=== PATIENT | male | born 1960 | race Caucasian/White ===

== ENCOUNTER 2017-02-03 11:39 | Emergency (ER) | payer MEDICAID, MEDICARE ==
[~2017-02-03] VITALS: Ht 177.8 cm; Wt 87.8 kg
[~2017-02-03 11:39] MED LIST: ATOR40TA78 PO; CARV12.52 PO; CLOP75TA PO; CLOP75TA52 PO; DIAZ5TAB4 PO; ESCI20TA PO; HYDR-3237 PO; HYDR10TA11 PO; ISOS30TA8 PO; LEVO100T5 PO; LISI40TA PO; LORA-445 PO; METF500T4 PO; METH4TAB2 PO; NAPR500T3 PO; NITR0.4T SL; OXYC5TAB3 PO; POLY17PO5 PO; [UNRECOGNIZED DRUG - CODE] PO
[2017-02-03 12:21] LABS: HEMATOCRIT 46.1 % (39.2-51.8); HEMOGLOBIN 15.6 g/dL (13.7-18.0); WHITE BLOOD COUNT 12.2 x10^3/uL (3.4-10)
[2017-02-03] MEDS ORDERED: METOCLOPRAMIDE 5 MG/ML, 2ML ONE (12:21)
[2017-02-03] MEDS ORDERED: ONDANSETRON 2MG/ML, 2ML ONE (12:21)
[2017-02-03] MEDS ORDERED: METOCLOPRAMIDE 5 MG/ML, 2ML IVPush ONE (12:30)
[2017-02-03] MEDS ORDERED: SODIUM CHLORIDE 0.9% 1,000ML IVBOLUS ONE (12:30)
[2017-02-03] MEDS ORDERED: SODIUM CHLORIDE FLUSH 10ML SYR IVF ONE (12:30)
[2017-02-03] MEDS ORDERED: ONDANSETRON 2MG/ML, 2ML IVPush ONE (12:30)
[2017-02-03 12:38] VITALS: BP 155/85
[2017-02-03 12:39] LABS: ASPARTATE AMINO TRANSFERASE 29 U/L (15-37); BLOOD UREA NITROGEN 15 mg/dL (7-18)
[2017-02-03] MEDS ORDERED: OMNIPAQUE 350 MG/ML, 100ML BOTTLE ONE (13:01)
[2017-02-03] MEDS ORDERED: MORPHINE SULFATE 4 MG/ML, 1ML ONE (13:16)
[2017-02-03] MEDS ORDERED: MORPHINE SULFATE 4 MG/ML, 1ML IVPush PRN (13:30)
[2017-02-03 13:56] LABS: PATH.CAST-FLAG NOT PRESENT; SPERM-FLAG NOT PRESENT; SRC-FLAG NOT PRESENT; XTAL-FLAG NOT PRESENT; YLC-FLAG NOT PRESENT
== END 2017-02-03 14:08 | disposition home or self-care (01) ==
LOC: ED 12:08
DX: K52.9 Noninfective gastroenteritis and colitis, unspecified (principal); E11.9 Type 2 diabetes mellitus without complications; M19.90 Unspecified osteoarthritis, unspecified site; I50.9 Heart failure, unspecified
CPT/HCPCS: 36415; 74177; 80053; 81001; 83690; 85025; 96361; 96374; 96375; 99285; J2405; J2765; J7030; Q9967

== ENCOUNTER 2017-03-27 11:46 | Emergency (ER) | payer MEDICARE ==
[~2017-03-27] VITALS: Ht 177.8 cm; Wt 88.0 kg
[~2017-03-27 11:46] MED LIST changes: -NAPR500T3 PO; +NAPR500T4 PO
[2017-03-27] MEDS ORDERED: SODIUM CHLORIDE 0.9% 1,000 ML IV ONE (12:11)
[2017-03-27] MEDS ORDERED: ONDANSETRON 2MG/ML, 2ML ONE (12:16)
[2017-03-27] MEDS ORDERED: morphine SULFATE 10 MG/ML, 1ML ONE ×2 (12:16→13:31)
[2017-03-27] MEDS: MORPHINE SULFATE 4 MG/ML, 1ML IVPush PRN ×2 (12:19→13:34)
[2017-03-27] MEDS ORDERED: ONDANSETRON 2MG/ML, 2ML IVPush ONE (12:30)
[2017-03-27] MEDS ORDERED: SODIUM CHLORIDE FLUSH 10ML SYR IVF ONE (12:30)
[2017-03-27] MEDS ORDERED: SODIUM CHLORIDE 0.9% 1,000ML IVBOLUS ONE (12:30)
[2017-03-27 12:40] LABS: HEMATOCRIT 44.3 % (39.2-51.8); HEMOGLOBIN 14.9 g/dL (13.7-18.0); WHITE BLOOD COUNT 11.7 x10^3/uL (3.4-10)
[2017-03-27 12:47] LABS: ASPARTATE AMINO TRANSFERASE 12 U/L (15-37); BLOOD UREA NITROGEN 20 mg/dL (7-18)
[2017-03-27] MEDS ORDERED: DIAZEPAM 5 MG/ML, 2ML ONE (14:43)
[2017-03-27] MEDS ORDERED: DIAZEPAM 5 MG/ML, 2ML IV ONE (15:00)
[2017-03-27 15:23] VITALS: BP 103/61
== END 2017-03-27 15:45 | disposition home or self-care (01) ==
LOC: ED 13:19
DX: K52.9 Noninfective gastroenteritis and colitis, unspecified (principal); I11.0 Hypertensive heart disease with heart failure; I50.9 Heart failure, unspecified; E11.9 Type 2 diabetes mellitus without complications; I25.10 Atherosclerotic heart disease of native coronary artery without angina pectoris; M19.90 Unspecified osteoarthritis, unspecified site; F17.200 Nicotine dependence, unspecified, uncomplicated
CPT/HCPCS: 36415; 80053; 81001; 82010; 83605; 83690; 85025; 93005; 96361; 96374; 96375; 96376; 99285; J2405; J3360; J7030

== ENCOUNTER 2017-04-22 10:51 | Emergency (ER) | payer MEDICARE ==
[~2017-04-22] VITALS: Ht 177.8 cm; Wt 85.0 kg
[2017-04-22] MEDS ORDERED: SODIUM CHLORIDE 0.9% 1,000 ML IV ONE (11:29)
[2017-04-22] MEDS ORDERED: FAMOTIDINE 20 MG/2 ML IVP ONE (11:30)
[2017-04-22] MEDS ORDERED: HYDROmorphone 1 MG/ML, 1ML IVPush PRN (11:30)
[2017-04-22] MEDS ORDERED: SODIUM CHLORIDE 0.9% 1,000ML IVBOLUS ONE (11:30)
[2017-04-22] MEDS ORDERED: SODIUM CHLORIDE FLUSH 10ML SYR IVF ONE (11:30)
[2017-04-22] MEDS ORDERED: METOCLOPRAMIDE 5 MG/ML, 2ML IVPush ONE (11:30)
[2017-04-22] MEDS ORDERED: ONDANSETRON 2MG/ML, 2ML IVPush ONE (11:30)
[2017-04-22] MEDS ORDERED: ONDANSETRON 2MG/ML, 2ML ONE (12:05)
[2017-04-22] MEDS ORDERED: HYDROmorphone 2 MG/ML, 1ML ONE (12:05)
[2017-04-22] MEDS ORDERED: METOCLOPRAMIDE 5 MG/ML, 2ML ONE (12:05)
[2017-04-22 12:06] LABS: HEMATOCRIT 45.4 % (39.2-51.8); HEMOGLOBIN 15.3 g/dL (13.7-18.0); WHITE BLOOD COUNT 12.6 x10^3/uL (3.4-10)
[2017-04-22] MEDS ORDERED: FAMOTIDINE 20 MG/2 ML ONE (12:06)
[2017-04-22 12:17] LABS: ASPARTATE AMINO TRANSFERASE 18 U/L (15-37); BLOOD UREA NITROGEN 18 mg/dL (7-18)
[2017-04-22 13:25] VITALS: BP 128/76
== END 2017-04-22 14:11 | disposition home or self-care (01) ==
LOC: ED 12:46
DX: K52.9 Noninfective gastroenteritis and colitis, unspecified (principal); E86.9 Volume depletion, unspecified; E86.0 Dehydration; M54.5 Low back pain; I25.10 Atherosclerotic heart disease of native coronary artery without angina pectoris; I25.2 Old myocardial infarction; I50.9 Heart failure, unspecified
CPT/HCPCS: 36415; 74022; 80053; 83605; 83690; 85025; 96361; 96374; 96375; 99285; J1170; J2405; J2765; J7030; S0028

== ENCOUNTER 2017-04-23 10:46 | Emergency (ER) | payer MEDICARE ==
[~2017-04-23] VITALS: Ht 182.9 cm; Wt 85.5 kg
[2017-04-23 10:48] VITALS: BP 174/100
[2017-04-23] MEDS ORDERED: SODIUM CHLORIDE 0.9% 1,000ML IVBOLUS ONE ×2 (11:00→13:30)
[2017-04-23] MEDS ORDERED: SODIUM CHLORIDE FLUSH 10ML SYR IVF ONE ×2 (11:00→13:30)
[2017-04-23] MEDS ORDERED: ONDANSETRON 2MG/ML, 2ML IVPush ONE ×2 (11:00→13:30)
[2017-04-23 11:41] LABS: HEMATOCRIT 46.9 % (39.2-51.8); HEMOGLOBIN 15.6 g/dL (13.7-18.0); WHITE BLOOD COUNT 13.4 x10^3/uL (3.4-10)
[2017-04-23 12:01] LABS: ASPARTATE AMINO TRANSFERASE 21 U/L (15-37); BLOOD UREA NITROGEN 12 mg/dL (7-18)
[2017-04-23] MEDS ORDERED: ONDANSETRON 2MG/ML, 2ML ONE (13:11)
[2017-04-23] MEDS ORDERED: MORPHINE SULFATE 4 MG/ML, 1ML IVPush PRN (13:30)
[2017-04-23] MEDS ORDERED: morphine SULFATE 10 MG/ML, 1ML ONE (13:36)
[2017-04-23] MEDS ORDERED: OMNIPAQUE 350 MG/ML, 100ML BOTTLE ONE (14:56)
[2017-04-23 14:58] LABS: PATH.CAST-FLAG NOT PRESENT; SPERM-FLAG NOT PRESENT; SRC-FLAG NOT PRESENT; XTAL-FLAG NOT PRESENT; YLC-FLAG NOT PRESENT
[2017-04-23 15:04] LABS: HEMATOCRIT 46.1 % (39.2-51.8); HEMOGLOBIN 15.4 g/dL (13.7-18.0); WHITE BLOOD COUNT 12.6 x10^3/uL (3.4-10)
[2017-04-23 15:14] LABS: BLOOD UREA NITROGEN 13 mg/dL (7-18)
== END 2017-04-23 16:37 | disposition home or self-care (01) ==
LOC: ED 13:17
DX: M47.896 Other spondylosis, lumbar region (principal); R10.84 Generalized abdominal pain; R19.7 Diarrhea, unspecified; R11.2 Nausea with vomiting, unspecified; G89.29 Other chronic pain; M54.5 Low back pain; E11.9 Type 2 diabetes mellitus without complications; I25.10 Atherosclerotic heart disease of native coronary artery without angina pectoris; I11.0 Hypertensive heart disease with heart failure; I50.9 Heart failure, unspecified
CPT/HCPCS: 36415; 74177; 80048; 80053; 81001; 82040; 83690; 85025; 85610; 93005; 96361; 96374; 96375; 99285; J2405; J7030; Q9967

== ENCOUNTER 2017-05-02 23:37 | Emergency (ER) | payer MEDICARE ==
[~2017-05-02] VITALS: Ht 177.8 cm; Wt 89.4 kg
[2017-05-03] MEDS ORDERED: SODIUM CHLORIDE FLUSH 10ML SYR IVF ONE
[2017-05-03 00:45] LABS: HEMATOCRIT 41.3 % (39.2-51.8); HEMOGLOBIN 14.1 g/dL (13.7-18.0)
[2017-05-03 00:58] LABS: BLOOD UREA NITROGEN 20 mg/dL (7-18)
[2017-05-03 01:13] LABS: IS PT STATUS REG ER OR PRE ER? YES
[2017-05-03 02:06] VITALS: BP 136/67
== END 2017-05-03 02:09 | disposition home or self-care (01) ==
LOC: ED 05-03 02:00
DX: R06.00 Dyspnea, unspecified (principal); I10 Essential (primary) hypertension; E11.9 Type 2 diabetes mellitus without complications
CPT/HCPCS: 36415; 71020; 80048; 82040; 84484; 85025; 93005; 99285

== ENCOUNTER 2017-05-15 15:39 | Emergency (ER) | payer MEDICARE ==
[~2017-05-15] VITALS: Ht 177.8 cm; Wt 84.4 kg
[2017-05-15] MEDS ORDERED: HYDROmorphone 1 MG/ML, 1ML IM ONE (17:30)
[2017-05-15] MEDS ORDERED: DEXAMETHASONE 4 MG TABLET PO ONE (17:30)
[2017-05-15] MEDS ORDERED: ONDANSETRON ODT 4 MG PO ONE (17:30)
[2017-05-15] MEDS ORDERED: ONDANSETRON ODT 4 MG ONE (17:38)
[2017-05-15] MEDS ORDERED: DEXAMETHASONE 4 MG TABLET ONE (17:38)
[2017-05-15] MEDS ORDERED: HYDROmorphone 2 MG/ML, 1ML ONE (17:39)
[2017-05-15 17:58] LABS: BASOPHILS # (AUTO) 0.11 x10^3/uL (0-0.1); BASOPHILS % (AUTO) 1 % (0-1); EOSINOPHILS # (AUTO) 0.09 x10^3/uL (0-0.4); EOSINOPHILS % (AUTO) 1 % (1-7); LYMPHOCYTES # (AUTO) 2.75 x10^3/uL (1-3.4); LYMPHOCYTES % (AUTO) 19 % (22-44); MD NO; MEAN CORPUSCULAR HEMOGLOBIN 30.9 pg (27.5-34.5); MEAN CORPUSCULAR HGB CONC 33.3 g/dL (33.2-36.2); MEAN CORPUSCULAR VOLUME 92.7 fL (81-97); MONOCYTES # (AUTO) 1.26 x10^3/uL (0.2-0.8); MONOCYTES % (AUTO) 9 % (2-9); NEUTROPHILS # (AUTO) 10.33 x10^3/uL (1.8-6.8); NEUTROPHILS % (AUTO) 71 % (42-75); PLATELET COUNT 371 x10^3/uL (130-400); RED BLOOD COUNT 5.23 x10^6/uL (4.38-5.82); RED CELL DISTRIBUTION WIDTH 13.8 % (9.4-14.8)
[2017-05-15 18:09] LABS: ALANINE AMINOTRANSFERASE 39 U/L (12-78); ALBUMIN 4.8 g/dL (3.4-5.0); ANION GAP 11 mmol/L (5-15); CALCIUM 9.2 mg/dL (8.5-10.1); CHLORIDE 104 mmol/L (98-107); CREATININE 1.22 mg/dL (0.7-1.3)
[2017-05-15 18:12] LABS: ALKALINE PHOSPHATASE 65 U/L (45-117); BILIRUBIN,TOTAL 0.8 mg/dL (0.2-1.0); TOTAL PROTEIN 8.1 g/dL (6.4-8.2)
[2017-05-15 18:59] VITALS: BP 136/73
== END 2017-05-15 19:32 | disposition home or self-care (01) ==
LOC: ED 18:30
DX: M54.31 Sciatica, right side (principal); Z76.0 Encounter for issue of repeat prescription; F17.200 Nicotine dependence, unspecified, uncomplicated; E11.9 Type 2 diabetes mellitus without complications; I25.10 Atherosclerotic heart disease of native coronary artery without angina pectoris; I25.2 Old myocardial infarction; I50.9 Heart failure, unspecified
CPT/HCPCS: 36415; 80053; 85025; 96372; 99284; J1170; Q0162

== ENCOUNTER 2017-06-13 14:04 | Emergency (ER) | payer MEDICARE ==
[~2017-06-13] VITALS: Ht 177.8 cm; Wt 85.0 kg
[~2017-06-13 14:04] MED LIST changes: +GABA300C10 PO
[2017-06-13] MEDS ORDERED: ASPIRIN 81 MG TABLET CHEW PO ONE (14:30)
[2017-06-13 15:06] LABS: BASOPHILS % (AUTO) 1 % (0-1); EOSINOPHILS # (AUTO) 0.19 x10^3/uL (0-0.4); EOSINOPHILS % (AUTO) 1 % (1-7); LYMPHOCYTES # (AUTO) 2.71 x10^3/uL (1-3.4); LYMPHOCYTES % (AUTO) 20 % (22-44); MD NO; MEAN CORPUSCULAR HEMOGLOBIN 30.2 pg (27.5-34.5); MEAN CORPUSCULAR HGB CONC 33.4 g/dL (33.2-36.2); MEAN CORPUSCULAR VOLUME 90.6 fL (81-97); MEAN PLATELET VOLUME 7.8 fL (7.4-10.4); MONOCYTES # (AUTO) 1.15 x10^3/uL (0.2-0.8); MONOCYTES % (AUTO) 9 % (2-9); NEUTROPHILS # (AUTO) 9.17 x10^3/uL (1.8-6.8); NEUTROPHILS % (AUTO) 69 % (42-75); PLATELET COUNT 376 x10^3/uL (130-400); RED BLOOD COUNT 4.93 x10^6/uL (4.38-5.82); RED CELL DISTRIBUTION WIDTH 14.5 % (9.4-14.8)
[2017-06-13] MEDS ORDERED: ASPIRIN 81 MG TABLET CHEW ONE (15:12)
[2017-06-13 15:15] LABS: ALBUMIN 4.2 g/dL (3.4-5.0); ANION GAP 7 mmol/L (5-15); CALCIUM 8.7 mg/dL (8.5-10.1); CHLORIDE 101 mmol/L (98-107)
[2017-06-13 15:20] LABS: TROPONIN I < 0.015 ng/mL (0.000-0.045)
[2017-06-13] MEDS ORDERED: OMNIPAQUE 350 MG/ML, 100ML BOTTLE ONE (16:19)
[2017-06-13] MEDS ORDERED: KETOROLAC 30 MG/1 ML ONE (16:41)
[2017-06-13 16:43] VITALS: BP 137/80
[2017-06-13] MEDS ORDERED: KETOROLAC 30 MG/1 ML IM ONE (17:00)
== END 2017-06-13 17:12 | disposition home or self-care (01) ==
LOC: ED 15:48
DX: M94.0 Chondrocostal junction syndrome [Tietze] (principal); I11.0 Hypertensive heart disease with heart failure; I50.9 Heart failure, unspecified; E11.9 Type 2 diabetes mellitus without complications; M19.90 Unspecified osteoarthritis, unspecified site; I25.10 Atherosclerotic heart disease of native coronary artery without angina pectoris; F17.210 Nicotine dependence, cigarettes, uncomplicated
CPT/HCPCS: 36415; 71046; 71275; 80048; 82040; 83880; 84484; 85025; 85379; 93005; 96372; 99285; J1885; Q9967

== ENCOUNTER 2017-11-12 16:36 | Emergency (ER) | payer MEDICARE ==
[~2017-11-12] VITALS: Ht 177.8 cm; Wt 84.8 kg
[~2017-11-12 16:36] MED LIST changes: -METF500T4 PO; +METF500T5 PO; +NAPR-685 PO; -NAPR500T4 PO
[2017-11-12] MEDS ORDERED: ASCO-96 PO (17:21)
[2017-11-12] MEDS ORDERED: SOFO1TAB PO (17:21)
[2017-11-12] MEDS ORDERED: CITA40TA5 PO ×2 (17:21)
[2017-11-12] MEDS ORDERED: SODIUM CHLORIDE 0.9% 1,000ML IVBOLUS ONE (18:00)
[2017-11-12] MEDS ORDERED: SODIUM CHLORIDE FLUSH 10ML SYR IVF ONE (18:00)
[2017-11-12 18:26] LABS: BASOPHILS # (AUTO) 0.12 x10^3/uL (0-0.1); BASOPHILS % (AUTO) 1 % (0-1); EOSINOPHILS # (AUTO) 0.21 x10^3/uL (0-0.4); EOSINOPHILS % (AUTO) 2 % (1-7); LYMPHOCYTES % (AUTO) 20 % (22-44); MD NO; MEAN CORPUSCULAR HGB CONC 33.6 g/dL (33.2-36.2); MEAN CORPUSCULAR VOLUME 92.1 fL (81-97); MEAN PLATELET VOLUME 7.4 fL (7.4-10.4); MONOCYTES # (AUTO) 0.71 x10^3/uL (0.2-0.8); MONOCYTES % (AUTO) 6 % (2-9); NEUTROPHILS # (AUTO) 8.21 x10^3/uL (1.8-6.8); NEUTROPHILS % (AUTO) 71 % (42-75); PLATELET COUNT 375 x10^3/uL (130-400); RED CELL DISTRIBUTION WIDTH 13.7 % (9.4-14.8)
[2017-11-12] MEDS ORDERED: MORPHINE SULFATE 4 MG/ML, 1ML ONE (18:27)
[2017-11-12] MEDS ORDERED: MORPHINE SULFATE 4 MG/ML, 1ML IVPush ONE (18:30)
[2017-11-12 18:38] LABS: ALBUMIN 3.9 g/dL (3.4-5.0); ANION GAP 6 mmol/L (5-15); CALCIUM 8.6 mg/dL (8.5-10.1); CHLORIDE 105 mmol/L (98-107)
[2017-11-12 18:41] LABS: ALANINE AMINOTRANSFERASE 16 U/L (12-78); ALKALINE PHOSPHATASE 69 U/L (45-117); BILIRUBIN,TOTAL 0.5 mg/dL (0.2-1.0); CREATININE 1.06 mg/dL (0.7-1.3)
[2017-11-12 19:30] VITALS: BP 146/91
[2017-11-12 19:42] LABS: MICROSCOPIC AUTO
[2017-11-12 19:45] LABS: CULTURE INDICATED? NO
== END 2017-11-12 20:19 ==
LOC: ED 17:27
DX: R19.7 Diarrhea, unspecified (principal); R10.30 Lower abdominal pain, unspecified; E11.9 Type 2 diabetes mellitus without complications; I10 Essential (primary) hypertension; E78.5 Hyperlipidemia, unspecified; I25.2 Old myocardial infarction; M54.30 Sciatica, unspecified side
CPT/HCPCS: 36415; 74018; 80053; 81001; 83690; 85025; 96361; 96374; 99285; J7030

== ENCOUNTER 2017-11-26 13:40 | Emergency (ER) | payer MEDICARE ==
[~2017-11-26] VITALS: Ht 177.8 cm; Wt 84.0 kg
[~2017-11-26 13:40] MED LIST changes: +ASCO-96 PO; +CITA40TA5 PO; +SOFO1TAB PO
[2017-11-26] MEDS ORDERED: ONDANSETRON 2MG/ML, 2ML ONE (14:30)
[2017-11-26] MEDS ORDERED: ONDANSETRON 2MG/ML, 2ML IVPush ONE (14:30)
[2017-11-26] MEDS ORDERED: MORPHINE SULFATE 4 MG/ML, 1ML IVPush PRN (14:30)
[2017-11-26] MEDS ORDERED: SODIUM CHLORIDE FLUSH 10ML SYR IVF ONE (14:30)
[2017-11-26] MEDS ORDERED: MORPHINE SULFATE 4 MG/ML, 1ML ONE (14:31)
[2017-11-26 14:46] LABS: BASOPHILS # (AUTO) 0.09 x10^3/uL (0-0.1); BASOPHILS % (AUTO) 1 % (0-1); EOSINOPHILS # (AUTO) 0.06 x10^3/uL (0-0.4); EOSINOPHILS % (AUTO) 1 % (1-7); LYMPHOCYTES # (AUTO) 1.55 x10^3/uL (1-3.4); LYMPHOCYTES % (AUTO) 13 % (22-44); MD NO; MEAN CORPUSCULAR HEMOGLOBIN 30.5 pg (27.5-34.5); MEAN CORPUSCULAR HGB CONC 33.6 g/dL (33.2-36.2); MEAN CORPUSCULAR VOLUME 90.7 fL (81-97); MEAN PLATELET VOLUME 7.7 fL (7.4-10.4); MONOCYTES # (AUTO) 0.66 x10^3/uL (0.2-0.8); MONOCYTES % (AUTO) 5 % (2-9); NEUTROPHILS # (AUTO) 9.73 x10^3/uL (1.8-6.8); NEUTROPHILS % (AUTO) 81 % (42-75); PLATELET COUNT 392 x10^3/uL (130-400); RED CELL DISTRIBUTION WIDTH 13.5 % (9.4-14.8)
[2017-11-26 14:59] LABS: ALANINE AMINOTRANSFERASE 17 U/L (12-78); ALBUMIN 3.9 g/dL (3.4-5.0); ANION GAP 9 mmol/L (5-15); CALCIUM 8.8 mg/dL (8.5-10.1); CHLORIDE 109 mmol/L (98-107); CREATININE 1.22 mg/dL (0.7-1.3)
[2017-11-26 15:02] LABS: ALKALINE PHOSPHATASE 63 U/L (45-117); BILIRUBIN,TOTAL 0.7 mg/dL (0.2-1.0); TOTAL PROTEIN 7.4 g/dL (6.4-8.2)
[2017-11-26] MEDS ORDERED: OMNIPAQUE 350 MG/ML, 100ML BOTTLE ONE (15:23)
[2017-11-26 16:08] LABS: MICROSCOPIC INDICATED
[2017-11-26 16:16] LABS: CULTURE INDICATED? NO
[2017-11-26 16:58] VITALS: BP 123/81
== END 2017-11-26 17:01 | disposition home or self-care (01) ==
LOC: ED 15:00
DX: R10.33 Periumbilical pain (principal); R19.7 Diarrhea, unspecified; E86.0 Dehydration; I25.2 Old myocardial infarction; I50.9 Heart failure, unspecified; I11.0 Hypertensive heart disease with heart failure; I25.10 Atherosclerotic heart disease of native coronary artery without angina pectoris; J43.9 Emphysema, unspecified; E11.9 Type 2 diabetes mellitus without complications; E78.5 Hyperlipidemia, unspecified
CPT/HCPCS: 36415; 74177; 80053; 81001; 83690; 85025; 99285; Q9967

== ENCOUNTER 2017-11-27 11:17 | Emergency (ER) | payer MEDICARE ==
[~2017-11-27] VITALS: Ht 177.8 cm; Wt 85.5 kg
[2017-11-27] MEDS ORDERED: SODIUM CHLORIDE 0.9% 1,000 ML IV ONE (11:35)
[2017-11-27 11:57] LABS: BASOPHILS # (AUTO) 0.04 x10^3/uL (0-0.1); BASOPHILS % (AUTO) 0 % (0-1); EOSINOPHILS # (AUTO) 0.18 x10^3/uL (0-0.4); EOSINOPHILS % (AUTO) 2 % (1-7); LYMPHOCYTES # (AUTO) 1.48 x10^3/uL (1-3.4); LYMPHOCYTES % (AUTO) 13 % (22-44); MD NO; MEAN CORPUSCULAR HEMOGLOBIN 30.5 pg (27.5-34.5); MEAN CORPUSCULAR HGB CONC 33.6 g/dL (33.2-36.2); MEAN CORPUSCULAR VOLUME 90.7 fL (81-97); MEAN PLATELET VOLUME 7.5 fL (7.4-10.4); MONOCYTES # (AUTO) 0.58 x10^3/uL (0.2-0.8); MONOCYTES % (AUTO) 5 % (2-9); NEUTROPHILS # (AUTO) 8.77 x10^3/uL (1.8-6.8); NEUTROPHILS % (AUTO) 79 % (42-75); PLATELET COUNT 375 x10^3/uL (130-400); RED BLOOD COUNT 4.57 x10^6/uL (4.38-5.82); RED CELL DISTRIBUTION WIDTH 13.5 % (9.4-14.8)
[2017-11-27] MEDS ORDERED: SODIUM CHLORIDE 0.9% 1,000ML IVBOLUS ONE ×2 (12:00→12:30)
[2017-11-27] MEDS ORDERED: METOCLOPRAMIDE 5 MG/ML, 2ML IVPush ONE (12:00)
[2017-11-27] MEDS ORDERED: SODIUM CHLORIDE FLUSH 10ML SYR IVF ONE (12:00)
[2017-11-27] MEDS ORDERED: KETOROLAC 30 MG/1 ML IVPush ONE (12:00)
[2017-11-27 12:11] LABS: ALBUMIN 3.9 g/dL (3.4-5.0); ANION GAP 10 mmol/L (5-15); CALCIUM 8.5 mg/dL (8.5-10.1); CHLORIDE 108 mmol/L (98-107)
[2017-11-27 12:12] LABS: CREATININE 1.25 mg/dL (0.7-1.3)
[2017-11-27] MEDS ORDERED: KETOROLAC 30 MG/1 ML ONE (12:16)
[2017-11-27] MEDS ORDERED: METOCLOPRAMIDE 5 MG/ML, 2ML ONE (12:16)
[2017-11-27 14:14] VITALS: BP 132/72
== END 2017-11-27 14:45 ==
LOC: ED 12:22
DX: G44.219 Episodic tension-type headache, not intractable (principal); E86.0 Dehydration; I25.10 Atherosclerotic heart disease of native coronary artery without angina pectoris; I25.2 Old myocardial infarction; I50.9 Heart failure, unspecified; I11.0 Hypertensive heart disease with heart failure; E11.9 Type 2 diabetes mellitus without complications; F17.210 Nicotine dependence, cigarettes, uncomplicated; J43.9 Emphysema, unspecified
CPT/HCPCS: 36415; 80048; 82040; 85025; 96361; 96374; 96375; 99285; J1885; J2765; J7030

== ENCOUNTER 2018-03-03 15:13 | Emergency (ER) | payer MEDICARE ==
[~2018-03-03] VITALS: Ht 177.8 cm; Wt 92.0 kg
[~2018-03-03 15:13] MED LIST changes: +METF500T17 PO; -METF500T5 PO
[2018-03-03 15:29] VITALS: BP 167/88
[2018-03-03] MEDS ORDERED: HYDROcodone/APAP 5/325 TABLET PO STA (15:44)
[2018-03-03] MEDS ORDERED: HYDROcodone/APAP 5/325 TABLET ONE (16:18)
== END 2018-03-03 17:18 | disposition home or self-care (01) ==
LOC: ED 17:04
DX: S83.412A Sprain of medial collateral ligament of left knee, initial encounter (principal); E78.5 Hyperlipidemia, unspecified; I25.2 Old myocardial infarction; I25.10 Atherosclerotic heart disease of native coronary artery without angina pectoris; I11.0 Hypertensive heart disease with heart failure; I50.9 Heart failure, unspecified; E11.9 Type 2 diabetes mellitus without complications; F17.200 Nicotine dependence, unspecified, uncomplicated; M17.11 Unilateral primary osteoarthritis, right knee; Z85.53 Personal history of malignant neoplasm of renal pelvis; X50.1XXA Overexertion from prolonged static or awkward postures, initial encounter; Y93.89 Activity, other specified; Y99.8 Other external cause status; Y92.89 Other specified places as the place of occurrence of the external cause
CPT/HCPCS: 99284

== ENCOUNTER → 2018-06-06 | Outpatient (CLI) | payer MEDICARE ==
[~2018-06-06] MED LIST changes: +HYDR-3059 PO; -HYDR10TA11 PO; +REGADENOSON 0.4 MG/5 ML SYRINGE ONE
== END | disposition home or self-care (01) ==
LOC: CFH 07:40
PROVIDERS: ATTEND Internal Medicine
DX: R42 Dizziness and giddiness (principal); R07.9 Chest pain, unspecified
CPT/HCPCS: 78452; 93017; A9502; J2785

== ENCOUNTER 2018-06-13 08:03 | Emergency (ER) | payer MEDICARE ==
[~2018-06-13] VITALS: Ht 177.8 cm; Wt 96.4 kg
[~2018-06-13 08:03] MED LIST changes: -REGADENOSON 0.4 MG/5 ML SYRINGE ONE
--- NOTE | 2018-06-13 08:17 | NUR ---
First contact with pt. Pt resting on gurney with mild occasional cough that is non-productive. Pt states, "I have been coughing and had body aches for a few days. The first few days I was vomitting. I felt feverish at home but I did not take my temperature." NADN. Pt denies chest pain, trauma, diarrhea. All safety measures in place. Pt has unlabored respirations equal bilaterally. Call light within reach. Pt connected to all monitors.
[2018-06-13] MEDS ORDERED: HYDROcodone/APAP 5/325 TABLET PO ONE (08:30)
[2018-06-13] MEDS ORDERED: ONDANSETRON ODT 4 MG PO ONE (08:30)
[2018-06-13] MEDS ORDERED: ALBUTEROL/IPRATROPIUM 2.5MG/0.5MG, 3 ML ONE (08:49)
[2018-06-13] MEDS ORDERED: HYDROcodone/APAP 5/325 TABLET ONE (08:59)
[2018-06-13] MEDS ORDERED: ONDANSETRON ODT 8 MG ONE (08:59)
--- NOTE | 2018-06-13 09:02 | NUR ---
Provided medication per EMAR. Pt states sciatic back pain is a 6/10.
[2018-06-13 09:10] LABS: RAPID INFLUENZA A Negative (Negative); RAPID INFLUENZA B Negative (Negative)
[2018-06-13 09:18] LABS: BASOPHILS # (AUTO) 0.01 x10^3/uL (0-0.1); BASOPHILS % (AUTO) 0 % (0-1); EOSINOPHILS # (AUTO) 0.25 x10^3/uL (0-0.4); EOSINOPHILS % (AUTO) 3 % (1-7); LYMPHOCYTES # (AUTO) 0.81 x10^3/uL (1-3.4); LYMPHOCYTES % (AUTO) 9 % (22-44); MD NO; MEAN CORPUSCULAR HEMOGLOBIN 29.2 pg (27.5-34.5); MEAN CORPUSCULAR HGB CONC 33.2 g/dL (33.2-36.2); MEAN PLATELET VOLUME 8.1 fL (7.4-10.4); MONOCYTES # (AUTO) 1.07 x10^3/uL (0.2-0.8); MONOCYTES % (AUTO) 12 % (2-9); NEUTROPHILS # (AUTO) 6.56 x10^3/uL (1.8-6.8); NEUTROPHILS % (AUTO) 75 % (42-75); PLATELET COUNT 288 x10^3/uL (130-400); RED BLOOD COUNT 4.29 x10^6/uL (4.38-5.82); RED CELL DISTRIBUTION WIDTH 15.1 % (9.4-14.8)
--- NOTE | 2018-06-13 09:21 | NUR ---
Pt resting on gurney states that his sciatic back pain remains at a 6/10.
[2018-06-13 09:22] VITALS: BP 105/67
[2018-06-13 09:28] LABS: ALBUMIN 3.6 g/dL (3.4-5.0); ANION GAP 8 mmol/L (5-15); CALCIUM 8.8 mg/dL (8.5-10.1); CHLORIDE 98 mmol/L (98-107); CREATININE 1.33 mg/dL (0.7-1.3)
[2018-06-13 09:32] LABS: TROPONIN I < 0.015 ng/mL (0.000-0.045)
[2018-06-13] MEDS ORDERED: DEXAMETHASONE 4 MG TABLET ONE (10:12)
--- NOTE | 2018-06-13 10:15 | NUR ---
Pt resting on [employer] watching TV. NADN. Provided medication per EMAR. No needs expressed at this time. Pt states sciatic back pain is a 5/10.
[2018-06-13] MEDS ORDERED: DEXAMETHASONE 4 MG TABLET PO ONE (10:30)
--- NOTE | 2018-06-13 10:55 | NUR ---
Patient given discharge instructions and they have confirmed that they understand the instructions. Patient ambulatory with steady gait. Pt left with all personal belongings.
== END 2018-06-13 10:57 | disposition home or self-care (01) ==
LOC: ED 08:18
DX: J44.1 Chronic obstructive pulmonary disease with (acute) exacerbation (principal); B34.9 Viral infection, unspecified; M54.9 Dorsalgia, unspecified; G89.29 Other chronic pain; I11.0 Hypertensive heart disease with heart failure; I25.10 Atherosclerotic heart disease of native coronary artery without angina pectoris; I25.2 Old myocardial infarction; E78.5 Hyperlipidemia, unspecified; E11.9 Type 2 diabetes mellitus without complications; Z85.53 Personal history of malignant neoplasm of renal pelvis; F17.200 Nicotine dependence, unspecified, uncomplicated
CPT/HCPCS: 36415; 71046; 80048; 82040; 83605; 84484; 85025; 87400; 93005; 94640; 99284; Q0162

== ENCOUNTER 2018-06-17 20:54 | Emergency (ER) | payer MEDICARE ==
[~2018-06-17] VITALS: Ht 177.8 cm; Wt 95.2 kg
--- NOTE | 2018-06-17 21:10 | NUR ---
EKG DONE IN TRIAGE.
--- NOTE | 2018-06-17 21:10 | NUR ---
LATE ENTRY FOR 21:10. PT C/O SOB, COUGH, RIGHT SIDED LOWER ABD PAIN X 5 DAYS. PT IS TREATING WITH ABX FOR PNA NOW. PT DENIES N/V/D/ARROYO AT THIS TIME. PT AOX4. RESPS EVEN AND UNLABORED. BP/SPO2 MONITORS IN PLACE. CALL LIGHT WITHIN REACH. AWAITING EDMD ASSESSMENT AT THIS TIME.
[2018-06-17] MEDS ORDERED: ALBUTEROL/IPRATROPIUM 2.5MG/0.5MG, 3 ML ONE (21:52)
[2018-06-17] MEDS ORDERED: ALBUTEROL/IPRATROPIUM 2.5MG/0.5MG, 3 ML NPPB ONE (22:00)
[2018-06-17 22:01] LABS: MEAN CORPUSCULAR HEMOGLOBIN 28.5 pg (27.5-34.5); MEAN CORPUSCULAR HGB CONC 32.6 g/dL (33.2-36.2); MEAN CORPUSCULAR VOLUME 87.5 fL (81-97); MEAN PLATELET VOLUME 7.5 fL (7.4-10.4); PLATELET COUNT 498 x10^3/uL (130-400); RED BLOOD COUNT 4.54 x10^6/uL (4.38-5.82); RED CELL DISTRIBUTION WIDTH 14.9 % (9.4-14.8)
[2018-06-17 22:08] LABS: ALANINE AMINOTRANSFERASE 22 U/L (12-78); ALBUMIN 4.1 g/dL (3.4-5.0); ANION GAP 10 mmol/L (5-15); CALCIUM 8.5 mg/dL (8.5-10.1); CHLORIDE 104 mmol/L (98-107); CREATININE 1.26 mg/dL (0.7-1.3)
[2018-06-17 22:09] LABS: D-DIMER 0.57 ug/mlFEU (0.00-0.52); INTERNATIONAL NORMALIZED RATIO 0.98 (0.93-1.1); PROTHROMBIN TIME 10.4 Seconds (9.6-11.5)
[2018-06-17 22:12] LABS: ALKALINE PHOSPHATASE 82 U/L (45-117); BILIRUBIN,TOTAL 0.3 mg/dL (0.2-1.0); TOTAL PROTEIN 7.4 g/dL (6.4-8.2); TROPONIN I < 0.015 ng/mL (0.000-0.045)
[2018-06-17 22:23] LABS: MD YES
[2018-06-17 22:24] LABS: ANISOCYTOSIS 1+; BANDS%(MANUAL) 1 % (0-7); LYMPH#(MANUAL) 3.15 x10^3/uL (1-3.4); LYMPHS% (MANUAL) 16 % (22-44); MONOS#(MANUAL) 1.38 x10^3/uL (0.3-2.7); MONOS% (MANUAL) 7 % (2-9); MYELOCYTES% (MANUAL) 1 % (0-0); SEG#(MANUAL) 14.78 x10^3/uL (1.8-6.8); SEGS% (MANUAL) 75 % (42-75)
[2018-06-17 22:25] LABS: <PLATELET ESTIMATE> INCREASED; <PLT MORPHOLOGY> NORMAL PLT MORPH
--- NOTE | 2018-06-17 22:36 | NUR ---
pt requesting pain med at this time. pt c/o right lower quadrant abd pain 12/23. edmd notified.
[2018-06-17] MEDS ORDERED: KETOROLAC 30 MG/1 ML ONE (22:43)
--- NOTE | 2018-06-17 22:51 | NUR ---
preceptor note: piv placed by ROBLES Roach. CT paged pt is ready for scan.
--- NOTE | 2018-06-17 22:53 | NUR ---
PT MEDICATED PER EMAR. PT TOLERATED WELL. PT AOX4. RESPS EVEN AND UNLABORED.
[2018-06-17] MEDS ORDERED: KETOROLAC 30 MG/1 ML IVPush ONE (23:00)
[2018-06-17 23:39] VITALS: BP 108/62
--- NOTE | 2018-06-17 23:40 | NUR ---
PT'S PAIN LEVEL REDUCED TO 4/10 AT THIS TIME. PT AOX4. RESPS EVEN AND UNLABORED.
--- NOTE | 2018-06-17 23:43 | NUR ---
CT and lab results discussed with EDMD Bell. per EDMD, pt was prescribed appropriate PO abx outpatient. MD to discuss results and POC with pt, awaiting further orders at this time.
--- NOTE | 2018-06-17 23:45 | NUR ---
EDMD AT BEDSIDE TO EXPLAIN ALL REDULTS AT THIS TIME.
--- NOTE | 2018-06-17 23:59 | NUR ---
PIV dc'd with tip intact. pt a&o, resps even and unlabored. pt given dc instructions and script. pt educated regarding dc rx. pt educated not to drive d/t med given. pt amb to dc desk with steady gait, nadn at dc.
== END 2018-06-18 | disposition home or self-care (01) ==
LOC: ED 22:27
DX: J18.9 Pneumonia, unspecified organism (principal); J44.1 Chronic obstructive pulmonary disease with (acute) exacerbation; E78.5 Hyperlipidemia, unspecified; E11.9 Type 2 diabetes mellitus without complications; I11.0 Hypertensive heart disease with heart failure; I50.9 Heart failure, unspecified; I25.2 Old myocardial infarction; I25.10 Atherosclerotic heart disease of native coronary artery without angina pectoris; F17.200 Nicotine dependence, unspecified, uncomplicated
CPT/HCPCS: 36415; 71275; 74177; 80053; 84484; 85025; 85379; 85610; 85730; 93005; 96374; 99284; J1885; J7620

== ENCOUNTER → 2018-06-29 | Outpatient (CLI) | payer MEDICARE ==
[~2018-06-29] MED LIST changes: +GADOBUTROL 10 MMOL/10 ML PFS ONE
== END | disposition home or self-care (01) ==
LOC: CFH 13:24
PROVIDERS: ATTEND Internal Medicine
DX: J32.2 Chronic ethmoidal sinusitis (principal); J32.0 Chronic maxillary sinusitis; H70.91 Unspecified mastoiditis, right ear; E78.5 Hyperlipidemia, unspecified; I10 Essential (primary) hypertension; F32.9 Major depressive disorder, single episode, unspecified; F41.9 Anxiety disorder, unspecified; E03.9 Hypothyroidism, unspecified; E11.9 Type 2 diabetes mellitus without complications; C64.9 Malignant neoplasm of unspecified kidney, except renal pelvis; Z87.891 Personal history of nicotine dependence
CPT/HCPCS: 70553; A9585

== ENCOUNTER 2018-07-06 14:49 | Observation (INO) | payer MEDICARE ==
[~2018-07-06] VITALS: Ht 177.8 cm; Wt 96.4 kg
[~2018-07-06 14:49] MED LIST changes: -GADOBUTROL 10 MMOL/10 ML PFS ONE
[2018-07-06 15:46] LABS: BASOPHILS # (AUTO) 0.03 x10^3/uL (0-0.1); BASOPHILS % (AUTO) 0 % (0-1); EOSINOPHILS # (AUTO) 0.29 x10^3/uL (0-0.4); EOSINOPHILS % (AUTO) 3 % (1-7); LYMPHOCYTES # (AUTO) 1.93 x10^3/uL (1-3.4); LYMPHOCYTES % (AUTO) 19 % (22-44); MD NO; MEAN CORPUSCULAR HEMOGLOBIN 29.5 pg (27.5-34.5); MEAN CORPUSCULAR HGB CONC 33.7 g/dL (33.2-36.2); MEAN CORPUSCULAR VOLUME 87.6 fL (81-97); MEAN PLATELET VOLUME 7.9 fL (7.4-10.4); MONOCYTES # (AUTO) 0.77 x10^3/uL (0.2-0.8); MONOCYTES % (AUTO) 8 % (2-9); NEUTROPHILS # (AUTO) 6.93 x10^3/uL (1.8-6.8); NEUTROPHILS % (AUTO) 70 % (42-75); PLATELET COUNT 321 x10^3/uL (130-400); RED BLOOD COUNT 4.47 x10^6/uL (4.38-5.82); RED CELL DISTRIBUTION WIDTH 15.4 % (9.4-14.8)
[2018-07-06 15:57] LABS: ALBUMIN 4.2 g/dL (3.4-5.0); ANION GAP 8 mmol/L (5-15); CALCIUM 8.5 mg/dL (8.5-10.1); CHLORIDE 98 mmol/L (98-107)
[2018-07-06 15:58] LABS: CREATININE 1.16 mg/dL (0.7-1.3)
--- NOTE | 2018-07-06 16:30 | NUR ---
ASSUMED CARE OF PT FROM LOBBY AT THIS TIME.
[2018-07-06] MEDS ORDERED: TIZA2TAB PO (16:33)
[2018-07-06] MEDS ORDERED: HYDROCORTISONE PO (16:33)
[2018-07-06] MEDS ORDERED: AMLO-150 PO (16:33)
[2018-07-06] MEDS ORDERED: METF500T17 PO (16:33)
[2018-07-06] MEDS ORDERED: GABA600T7 PO (16:33)
[2018-07-06] MEDS ORDERED: CLIN300C8 PO (16:34)
[2018-07-06] MEDS ORDERED: CEFD300C37 PO (16:34)
--- NOTE | 2018-07-06 16:44 | NUR ---
PT C/O ARROYO AND WAS SENT BY PMD AFTER MRI SHOWED SEVERE SINUSITIS AND MASTOIDITIS FROM A FEW DAYS AGO. PT HAS BEEN RECENTLY TREATED FOR PNEUMONIA WELL. PT ON MONITOR. CHART UP FOR MD. WAITING FURTHER ORDERS. Addendum: 07/06/18 at 1646 by ALEGLISE PT HAS BEEN ON ANTIBIOTICS SINCE MRI WAS DONE ON 06/29/18 WITH WORSENING ARROYO.
--- NOTE | 2018-07-06 17:06 | NUR ---
DR. NGUYEN AT BEDSIDE.
[2018-07-06] MEDS ORDERED: LIDOCAINE-MPF 1%, 5ML ONE (17:25)
[2018-07-06] MEDS ORDERED: OXYcodone/APAP 7.5/325MG TABLET ONE (17:35)
--- NOTE | 2018-07-06 17:39 | NUR ---
TASK RN: CONSENT FOR LP SIGNED. PT CO 12/23 ARROYO. PT ALSO HYPERTENSIVE, SBP: 190-200/DBP:100. ERP AWARE. NEW ORDERS RECEIVED FOR PAIN AND BP. NO IV AT THIS TIME PER ERP. PA AT BEDSIDE TO COMPLETE LP.
[2018-07-06] MEDS ORDERED: OXYcodone/APAP 7.5/325MG TABLET PO ONE (18:00)
[2018-07-06 18:36] LABS: GLUCOSE, CSF 60 mg/dL (40-80); TOTAL PROTEIN,CSF 60 mg/dL (15-45)
--- NOTE | 2018-07-06 19:03 | NUR ---
PT REQUESTING MORE PAIN MEDS. DR. NGUYEN AWARE. WAITING ON CSF RESULTS STILL.
[2018-07-06] MEDS ORDERED: HYDROmorphone 1 MG/ML, 1ML ONE (19:09)
[2018-07-06] MEDS ORDERED: HYDROmorphone 2 MG/ML, 1ML IM PRN (19:30)
--- NOTE | 2018-07-06 19:38 | NUR ---
CAHRT UP FOR MD AMAYA. PT AWARE.
--- NOTE | 2018-07-06 19:43 | NUR ---
REPORT TO TEGAN Thomas RN.
--- NOTE | 2018-07-06 20:39 | NUR ---
pt resting in room watching tv. vss. no needs at this time. medical hold, awaiting bed availabiltiy.
[2018-07-06 22:00] VITALS: BP 141/76
[2018-07-06] MEDS ORDERED: CAPTOPRIL 25 MG TABLET PO PRN (23:00)
[2018-07-06] MEDS ORDERED: ONDANSETRON ODT 4 MG PO PRN (23:00)
[2018-07-06] MEDS ORDERED: ASA/APAP/ CAFFEINE TABLET PO PRN (23:00)
[2018-07-06] MEDS ORDERED: IBUPROFEN 600 MG TABLET PO PRN (23:00)
[2018-07-06] MEDS ORDERED: LIDODERM 5% PATCH TD PRN (23:00)
[2018-07-06] MEDS ORDERED: KETOROLAC 30 MG/1 ML IV PRN (23:00)
[2018-07-06] MEDS ORDERED: LABETALOL 5 MG/ML SYRINGE IVPush PRN (23:00)
[2018-07-06] MEDS ORDERED: ZOLPIDEM 5MG TABLET PO PRN (23:00)
[2018-07-06] MEDS ORDERED: ENOXAPARIN 40 MG/0.4 ML SQ SCH (23:00)
[2018-07-06] MEDS ORDERED: ACETAMINOPHEN 325 MG TABLET PO PRN (23:00)
[2018-07-06] MEDS: HYDROmorphone 2 MG/ML, 1ML IVPush PRN (23:40)
[2018-07-07] MEDS ORDERED: NITROGLYCERIN 0.4 MG BOTTLE (25 TABS) SL SCH
[2018-07-07] MEDS ORDERED: TIZANIDINE 2MG TABLET PO PRN
[2018-07-07] MEDS: NICOTINE 14MG/24 HR PATCH.TD24 TD SCH ×2 (00:24→21:14)
[2018-07-07 01:06] VITALS: BP 146/69
[2018-07-07] MEDS: HYDROmorphone 2 MG/ML, 1ML IVPush PRN ×5 (04:38→21:10)
[2018-07-07 06:24] LABS: BASOPHILS # (AUTO) 0.04 x10^3/uL (0-0.1); BASOPHILS % (AUTO) 1 % (0-1); EOSINOPHILS # (AUTO) 0.36 x10^3/uL (0-0.4); EOSINOPHILS % (AUTO) 4 % (1-7); LYMPHOCYTES # (AUTO) 2.27 x10^3/uL (1-3.4); LYMPHOCYTES % (AUTO) 28 % (22-44); MD NO; MEAN CORPUSCULAR HEMOGLOBIN 29.4 pg (27.5-34.5); MEAN CORPUSCULAR HGB CONC 33.3 g/dL (33.2-36.2); MEAN CORPUSCULAR VOLUME 88.3 fL (81-97); MEAN PLATELET VOLUME 7.8 fL (7.4-10.4); MONOCYTES # (AUTO) 0.83 x10^3/uL (0.2-0.8); MONOCYTES % (AUTO) 10 % (2-9); NEUTROPHILS # (AUTO) 4.68 x10^3/uL (1.8-6.8); NEUTROPHILS % (AUTO) 57 % (42-75); PLATELET COUNT 259 x10^3/uL (130-400); RED BLOOD COUNT 4.08 x10^6/uL (4.38-5.82); RED CELL DISTRIBUTION WIDTH 15.7 % (9.4-14.8)
[2018-07-07] MEDS: LEVOTHYROXINE 100 MCG TABLET PO SCH (06:25)
[2018-07-07 06:37] LABS: ANION GAP 8 mmol/L (5-15); CALCIUM 8.5 mg/dL (8.5-10.1); CHLORIDE 101 mmol/L (98-107)
[2018-07-07 06:47] LABS: CREATININE 1.04 mg/dL (0.7-1.3)
[2018-07-07 08:45] VITALS: BP 157/78
[2018-07-07] MEDS: CLOPIDOGREL 75 MG TABLET PO SCH (10:33)
[2018-07-07] MEDS: LISINOPRIL 20 MG TABLET PO SCH (10:33)
[2018-07-07] MEDS: CITALOPRAM 20 MG TABLET PO SCH (10:33)
[2018-07-07] MEDS: AMLODIPINE 10 MG TAB PO SCH (10:34)
[2018-07-07] MEDS: CLINDAMYCIN 300 MG CAPSULE PO SCH ×3 (10:34→21:17)
[2018-07-07] MEDS: CARVEDILOL 12.5 MG TABLET PO SCH ×2 (10:34→21:17)
[2018-07-07] MEDS: GABAPENTIN 300 MG CAPSULE PO SCH ×3 (10:36→21:15)
[2018-07-07] MEDS: HYDROcodone/APAP 5/325 TABLET PO PRN (11:25)
[2018-07-07] MEDS: BACLOFEN 10 MG TABLET PO PRN (11:25)
[2018-07-07 13:26] VITALS: BP 100/61
[2018-07-07 14:00] VITALS: BP 108/69
[2018-07-07 19:30] VITALS: BP 110/65
[2018-07-07] MEDS ORDERED: ATORVASTATIN 40 MG TABLET PO SCH (21:00)
[2018-07-07] MEDS ORDERED: GABAPENTIN 100 MG CAPSULE ONE (21:04)
[2018-07-07] MEDS ORDERED: GABAPENTIN 400 MG CAPSULE ONE (21:04)
[2018-07-08] MEDS: BACLOFEN 10 MG TABLET PO PRN (00:29)
[2018-07-08 01:26] VITALS: BP 144/85
[2018-07-08] MEDS: HYDROcodone/APAP 5/325 TABLET PO PRN ×3 (03:56→12:33)
[2018-07-08 07:09] VITALS: BP 137/77
[2018-07-08 08:00] VITALS: BP 131/73
[2018-07-08] MEDS: CARVEDILOL 12.5 MG TABLET PO SCH (08:08)
[2018-07-08] MEDS: CITALOPRAM 20 MG TABLET PO SCH (08:08)
[2018-07-08] MEDS: LEVOTHYROXINE 100 MCG TABLET PO SCH (08:08)
[2018-07-08] MEDS: CLOPIDOGREL 75 MG TABLET PO SCH (08:08)
[2018-07-08] MEDS: AMLODIPINE 10 MG TAB PO SCH (08:09)
[2018-07-08] MEDS: CLINDAMYCIN 300 MG CAPSULE PO SCH (08:09)
[2018-07-08] MEDS: LISINOPRIL 20 MG TABLET PO SCH (08:09)
[2018-07-08] MEDS: GABAPENTIN 300 MG CAPSULE PO SCH (08:11)
[2018-07-08] MEDS ORDERED: ASPI1TAB61 PO (11:28)
[2018-07-08] MEDS ORDERED: ACET325T14 PO (11:28)
[2018-07-08 12:15] VITALS: BP 141/81
== END 2018-07-08 16:54 | disposition home or self-care (01) ==
LOC: ED 20:00 → INTOOBSV 20:09 → EDIP 20:09 → ED 20:20 → 3NE 21:34
PROVIDERS: ADMIT Internal Medicine; ATTEND Internal Medicine
DX: I16.1 Hypertensive emergency (principal); E87.1 Hypo-osmolality and hyponatremia; G44.89 Other headache syndrome; E11.9 Type 2 diabetes mellitus without complications; E78.5 Hyperlipidemia, unspecified; E86.1 Hypovolemia; F17.200 Nicotine dependence, unspecified, uncomplicated; G44.52 New daily persistent headache (NDPH); H70.90 Unspecified mastoiditis, unspecified ear; H93.13 Tinnitus, bilateral; I11.0 Hypertensive heart disease with heart failure; I25.10 Atherosclerotic heart disease of native coronary artery without angina pectoris; I50.9 Heart failure, unspecified; J44.9 Chronic obstructive pulmonary disease, unspecified; M47.816 Spondylosis without myelopathy or radiculopathy, lumbar region; Z85.528 Personal history of other malignant neoplasm of kidney; I25.2 Old myocardial infarction; Z90.5 Acquired absence of kidney
CPT/HCPCS: 36415; 70450; 80048; 82040; 82945; 83735; 84157; 84443; 85025; 85651; 86140; 87070; 87205; 89051; 93005; 96372; 96374; 96375; 96376; 97161; 99285; G0378; J1170; J1650; J1885; 99283

== ENCOUNTER 2018-09-21 16:55 | Inpatient (IN) | payer MEDICARE ==
[~2018-09-21] VITALS: Ht 177.8 cm; Wt 97.0 kg
[~2018-09-21 16:55] MED LIST changes: +ACET325T14 PO; +AMLO-150 PO; +ASPI1TAB61 PO; +CEFD300C37 PO; +CLIN300C8 PO; +GABA600T7 PO; +HYDROCORTISONE PO; +TIZA2TAB PO
--- NOTE | 2018-09-21 17:15 | NUR ---
PT STATES "I'M DEHYDRATED, I GOT MY PITUITUARY REMOVED AND THIS HAPPENS SOMETIMES", PT PLACED ON MONITOR. CALL LIGHT WITHIN REACH, LAB AT BEDSIDE
[2018-09-21 17:18] LABS: BASOPHILS # (AUTO) 0.05 x10^3/uL (0-0.1); BASOPHILS % (AUTO) 0 % (0-1); EOSINOPHILS # (AUTO) 0.26 x10^3/uL (0-0.4); EOSINOPHILS % (AUTO) 2 % (1-7); LYMPHOCYTES # (AUTO) 2.46 x10^3/uL (1-3.4); LYMPHOCYTES % (AUTO) 21 % (22-44); MD NO; MEAN CORPUSCULAR HEMOGLOBIN 29.5 pg (27.5-34.5); MEAN CORPUSCULAR HGB CONC 33.7 g/dL (33.2-36.2); MEAN CORPUSCULAR VOLUME 87.6 fL (81-97); MONOCYTES # (AUTO) 0.79 x10^3/uL (0.2-0.8); MONOCYTES % (AUTO) 7 % (2-9); NEUTROPHILS # (AUTO) 8.04 x10^3/uL (1.8-6.8); NEUTROPHILS % (AUTO) 69 % (42-75); PLATELET COUNT 325 x10^3/uL (130-400); RED BLOOD COUNT 4.71 x10^6/uL (4.38-5.82); RED CELL DISTRIBUTION WIDTH 15.3 % (9.4-14.8)
[2018-09-21 17:28] LABS: ALANINE AMINOTRANSFERASE 19 U/L (12-78); ALBUMIN 4.5 g/dL (3.4-5.0); ANION GAP 8 mmol/L (5-15); CALCIUM 8.6 mg/dL (8.5-10.1); CHLORIDE 99 mmol/L (98-107); CREATININE 1.27 mg/dL (0.7-1.3)
[2018-09-21 17:31] LABS: ALKALINE PHOSPHATASE 86 U/L (45-117); BILIRUBIN,TOTAL 0.3 mg/dL (0.2-1.0); CREATINE KINASE, TOTAL 232 U/L (39-308); TOTAL PROTEIN 7.8 g/dL (6.4-8.2)
[2018-09-21] MEDS ORDERED: SODIUM CHLORIDE FLUSH 10ML SYR IVF ONE ×2 (18:00→18:30)
[2018-09-21] MEDS ORDERED: ONDANSETRON 2MG/ML, 2ML ONE (18:12)
[2018-09-21] MEDS ORDERED: HYDROmorphone 1 MG/ML, 1ML VIAL ONE (18:12)
[2018-09-21] MEDS ORDERED: ONDANSETRON 2MG/ML, 2ML IVPush ONE (18:30)
[2018-09-21 18:32] LABS: MICROSCOPIC INDICATED
[2018-09-21] MEDS: HYDROmorphone 2 MG/ML, 1ML IVPush PRN ×2 (18:37→21:10)
--- NOTE | 2018-09-21 18:44 | NUR ---
IV ESTABLISHED AND PT MEDICATED PER MAR
[2018-09-21 19:13] LABS: CULTURE INDICATED? NO
--- NOTE | 2018-09-21 19:46 | NUR ---
PT TB ADM, AWAITING BED ASSIGNMENT
--- NOTE | 2018-09-21 20:21 | NUR ---
REPORT TO SHELLIE ARBOLEDA
--- NOTE | 2018-09-21 20:25 | NUR ---
BREAK RN: TP RN advising this RN that pt's room assignment was changed.
[2018-09-21] MEDS ORDERED: hydrALAzine 20 MG/ML, 1ML IVPush PRN (20:30)
[2018-09-21] MEDS ORDERED: ASA/APAP/ CAFFEINE TABLET PO PRN (20:30)
[2018-09-21] MEDS ORDERED: POLYETHYLENE GLYCOL 17 GM PACKET PO PRN (20:30)
[2018-09-21] MEDS ORDERED: ACETAMINOPHEN 325 MG TABLET PO PRN (20:30)
[2018-09-21] MEDS ORDERED: NITROGLYCERIN 0.4 MG BOTTLE (25 TABS) SL SCH (20:30)
[2018-09-21] MEDS ORDERED: HYDROmorphone 2 MG/ML, 1ML ONE (21:06)
--- NOTE | 2018-09-21 21:10 | NUR ---
RETURNED FROM BREAK, PT TRANSPORTED TO ROOM WITH TECH
[2018-09-21 21:16] LABS: HEMOGLOBIN A1C 5.9 % (4.2-6.3)
[2018-09-21 21:22] VITALS: BP 150/87
[2018-09-21] MEDS: GABAPENTIN 300 MG CAPSULE PO SCH (23:16)
[2018-09-21] MEDS: TIZANIDINE 2MG TABLET PO PRN (23:16)
[2018-09-21] MEDS: ATORVASTATIN 40 MG TABLET PO SCH (23:16)
[2018-09-21] MEDS: INSULIN LISPRO 100 UNITS/ML, PEN SQ-INSULIN SCH (23:17)
[2018-09-21] MEDS: CARVEDILOL 12.5 MG TABLET PO SCH (23:17)
[2018-09-22] MEDS ORDERED: NICOTINE 21 MG/24 HR PATCH.TD24 ONE (00:54)
[2018-09-22] MEDS: NICOTINE 21 MG/24 HR PATCH.TD24 TD SCH ×2 (00:57→09:34)
[2018-09-22 01:04] VITALS: BP 119/74
[2018-09-22] MEDS ORDERED: DIAZEPAM 5 MG TABLET PO ONE (02:30)
[2018-09-22 07:21] LABS: ALANINE AMINOTRANSFERASE 16 U/L (12-78); ALBUMIN 3.7 g/dL (3.4-5.0); ANION GAP 8 mmol/L (5-15); CALCIUM 8.4 mg/dL (8.5-10.1); CHLORIDE 104 mmol/L (98-107)
[2018-09-22 07:23] LABS: ALKALINE PHOSPHATASE 70 U/L (45-117); BILIRUBIN,TOTAL 0.3 mg/dL (0.2-1.0); TOTAL PROTEIN 6.5 g/dL (6.4-8.2)
[2018-09-22 07:24] VITALS: BP 149/83
[2018-09-22] MEDS: INSULIN LISPRO 100 UNITS/ML, PEN SQ-INSULIN SCH ×4 (07:57→21:00)
[2018-09-22] MEDS: CARVEDILOL 12.5 MG TABLET PO SCH ×2 (08:02→21:29)
[2018-09-22 08:07] LABS: BASOPHILS # (AUTO) 0.03 x10^3/uL (0-0.1); BASOPHILS % (AUTO) 0 % (0-1); EOSINOPHILS # (AUTO) 0.36 x10^3/uL (0-0.4); EOSINOPHILS % (AUTO) 4 % (1-7); LYMPHOCYTES # (AUTO) 2.13 x10^3/uL (1-3.4); LYMPHOCYTES % (AUTO) 23 % (22-44); MD NO; MEAN CORPUSCULAR HEMOGLOBIN 29.7 pg (27.5-34.5); MEAN CORPUSCULAR HGB CONC 33.8 g/dL (33.2-36.2); MEAN CORPUSCULAR VOLUME 87.8 fL (81-97); MEAN PLATELET VOLUME 8.4 fL (7.4-10.4); MONOCYTES # (AUTO) 0.91 x10^3/uL (0.2-0.8); MONOCYTES % (AUTO) 10 % (2-9); NEUTROPHILS # (AUTO) 6.04 x10^3/uL (1.8-6.8); NEUTROPHILS % (AUTO) 64 % (42-75); PLATELET COUNT 266 x10^3/uL (130-400); RED BLOOD COUNT 4.31 x10^6/uL (4.38-5.82); RED CELL DISTRIBUTION WIDTH 15.8 % (9.4-14.8)
[2018-09-22] MEDS ORDERED: NICOTINE 21 MG/24 HR PATCH.TD24 TD SCH (09:00)
[2018-09-22] MEDS: HYDROCORTISONE 10 MG TABLET PO SCH (09:32)
[2018-09-22] MEDS: CITALOPRAM 20 MG TABLET PO SCH (09:32)
[2018-09-22] MEDS: GABAPENTIN 300 MG CAPSULE PO SCH ×3 (09:33→21:29)
[2018-09-22] MEDS: AMLODIPINE 5 MG TABLET PO SCH (09:33)
[2018-09-22] MEDS: LEVOTHYROXINE 100 MCG TABLET PO SCH (09:33)
[2018-09-22] MEDS: ENOXAPARIN 40 MG/0.4 ML SQ SCH (09:33)
[2018-09-22] MEDS: CLOPIDOGREL 75 MG TABLET PO SCH (09:33)
[2018-09-22] MEDS: LISINOPRIL 40 MG TABLET PO SCH (09:33)
[2018-09-22] MEDS: metFORMIN 500 MG TABLET PO SCH (09:33)
[2018-09-22] MEDS ORDERED: HYDR-3237 PO (10:19)
[2018-09-22] MEDS: TIZANIDINE 2MG TABLET PO PRN (10:50)
[2018-09-22] MEDS ORDERED: OXYC-302 PO (11:35)
[2018-09-22] MEDS: OXYcodone/APAP 5/325MG TABLET PO PRN ×2 (13:19→21:45)
[2018-09-22 14:01] VITALS: BP 142/88
[2018-09-22] MEDS ORDERED: OXYcodone/APAP 5/325MG TABLET PO ONE (17:00)
[2018-09-22 20:39] VITALS: BP 146/82
[2018-09-22 21:19] VITALS: BP 156/89
[2018-09-22] MEDS: ATORVASTATIN 40 MG TABLET PO SCH (21:29)
[2018-09-23 02:27] VITALS: BP 134/79
[2018-09-23] MEDS: TIZANIDINE 2MG TABLET PO PRN (04:42)
[2018-09-23 05:15] LABS: ANION GAP 6 mmol/L (5-15); CALCIUM 8.9 mg/dL (8.5-10.1); CHLORIDE 107 mmol/L (98-107); CREATININE 1.07 mg/dL (0.7-1.3)
[2018-09-23] MEDS: OXYcodone/APAP 5/325MG TABLET PO PRN (05:50)
[2018-09-23] MEDS: INSULIN LISPRO 100 UNITS/ML, PEN SQ-INSULIN SCH ×2 (07:00→11:00)
[2018-09-23 08:40] VITALS: BP 162/88
[2018-09-23] MEDS: CLOPIDOGREL 75 MG TABLET PO SCH (09:00)
[2018-09-23] MEDS: NICOTINE 21 MG/24 HR PATCH.TD24 TD SCH (10:00)
[2018-09-23] MEDS: ENOXAPARIN 40 MG/0.4 ML SQ SCH (10:00)
[2018-09-23] MEDS: AMLODIPINE 5 MG TABLET PO SCH (10:02)
[2018-09-23] MEDS: CARVEDILOL 12.5 MG TABLET PO SCH (10:03)
[2018-09-23] MEDS: LEVOTHYROXINE 100 MCG TABLET PO SCH (10:07)
[2018-09-23] MEDS: metFORMIN 500 MG TABLET PO SCH (10:07)
[2018-09-23] MEDS: HYDROCORTISONE 10 MG TABLET PO SCH (10:08)
[2018-09-23] MEDS: LISINOPRIL 40 MG TABLET PO SCH (10:08)
[2018-09-23] MEDS: GABAPENTIN 300 MG CAPSULE PO SCH (10:08)
[2018-09-23] MEDS: CITALOPRAM 20 MG TABLET PO SCH (10:12)
== END 2018-09-23 13:42 | disposition home or self-care (01) | DRG 641 ==
LOC: ED 18:14 → EDIP 19:36 → 4EST 21:19 → DCLOUNGE 09-23 13:42
PROVIDERS: ADMIT Family Medicine; ATTEND Family Medicine
DX: E87.1 Hypo-osmolality and hyponatremia (principal); E27.40 Unspecified adrenocortical insufficiency; I16.0 Hypertensive urgency; D35.2 Benign neoplasm of pituitary gland; E03.9 Hypothyroidism, unspecified; E11.9 Type 2 diabetes mellitus without complications; E78.5 Hyperlipidemia, unspecified; F17.200 Nicotine dependence, unspecified, uncomplicated; F32.9 Major depressive disorder, single episode, unspecified; I11.0 Hypertensive heart disease with heart failure; I25.10 Atherosclerotic heart disease of native coronary artery without angina pectoris; I25.2 Old myocardial infarction; I50.9 Heart failure, unspecified; J06.9 Acute upper respiratory infection, unspecified; J43.9 Emphysema, unspecified; M19.90 Unspecified osteoarthritis, unspecified site; Z79.01 Long term (current) use of anticoagulants; Z79.84 Long term (current) use of oral hypoglycemic drugs; Z85.528 Personal history of other malignant neoplasm of kidney; Z90.5 Acquired absence of kidney; Z95.5 Presence of coronary angioplasty implant and graft
CPT/HCPCS: 36415; 80048; 80053; 81001; 82533; 82550; 82962; 83036; 83735; 84443; 85025; 93005; 96374; G0378; J1170; J1650; J2405

== ENCOUNTER 2018-10-19 21:56 | Emergency (ER) | payer MEDICARE ==
[~2018-10-19] VITALS: Ht 177.8 cm; Wt 98.5 kg
[~2018-10-19 21:56] MED LIST changes: -NITR0.4T SL; +NITR0.4T41 SL; +OXYC-302 PO
--- NOTE | 2018-10-19 22:17 | NUR ---
ASSESSMENT MADE. SEEN BY ERP. USER INTERFACE ARTIST AT BEDSIDE.
[2018-10-19] MEDS ORDERED: LORazepam 2 MG/ML, 1ML ONE (22:21)
[2018-10-19 22:28] LABS: BASOPHILS # (AUTO) 0.15 x10^3/uL (0-0.1); BASOPHILS % (AUTO) 1 % (0-1); EOSINOPHILS # (AUTO) 0.52 x10^3/uL (0-0.4); EOSINOPHILS % (AUTO) 4 % (1-7); LYMPHOCYTES # (AUTO) 2.97 x10^3/uL (1-3.4); LYMPHOCYTES % (AUTO) 24 % (22-44); MD NO; MEAN CORPUSCULAR HEMOGLOBIN 28.3 pg (27.5-34.5); MEAN CORPUSCULAR VOLUME 88.5 fL (81-97); MEAN PLATELET VOLUME 8.2 fL (7.4-10.4); MONOCYTES # (AUTO) 0.89 x10^3/uL (0.2-0.8); MONOCYTES % (AUTO) 7 % (2-9); NEUTROPHILS # (AUTO) 8.01 x10^3/uL (1.8-6.8); NEUTROPHILS % (AUTO) 64 % (42-75); PLATELET COUNT 324 x10^3/uL (130-400); RED BLOOD COUNT 4.72 x10^6/uL (4.38-5.82); RED CELL DISTRIBUTION WIDTH 15.4 % (9.4-14.8)
[2018-10-19] MEDS ORDERED: LORazepam 2 MG/ML, 1ML IVPush ONE (22:30)
[2018-10-19] MEDS ORDERED: SODIUM CHLORIDE FLUSH 10ML SYR IVF ONE (22:30)
--- NOTE | 2018-10-19 22:35 | NUR ---
IV PLACED. MEDICATED FOR MUSCLE CRAMPS.
[2018-10-19 22:36] LABS: ALANINE AMINOTRANSFERASE 13 U/L (12-78); ALBUMIN 4.1 g/dL (3.4-5.0); ANION GAP 9 mmol/L (5-15); CALCIUM 8.2 mg/dL (8.5-10.1); CHLORIDE 101 mmol/L (98-107); CREATININE 1.14 mg/dL (0.7-1.3)
[2018-10-19 22:38] LABS: ALKALINE PHOSPHATASE 82 U/L (45-117); BILIRUBIN,TOTAL 0.4 mg/dL (0.2-1.0); TOTAL PROTEIN 7.2 g/dL (6.4-8.2)
--- NOTE | 2018-10-19 22:53 | NUR ---
Opal thompson in ED - 10/19/18 at 2253 by FERNANDO IV PLACED. MEDICATED FOR CRAMPS.
--- NOTE | 2018-10-19 22:54 | NUR ---
CHART UP FOR MD TO RE-EVAL.
[2018-10-19] MEDS ORDERED: SODIUM CHLORIDE 0.9% 1,000ML IVBOLUS ONE (23:00)
--- NOTE | 2018-10-19 23:07 | NUR ---
PATIENT STATES THAT THE MEDICATION GIVEN EARLIER WAS NOT HELPING. ASKING FOR MORE STRONGER MEDICATION.
--- NOTE | 2018-10-19 23:14 | NUR ---
MD AWARE PATIENT IS ASKING MEDICATION TO STOP THE CRAMPING. IVF EMRE.
--- NOTE | 2018-10-20 00:47 | NUR ---
IV POSITIONAL. IVF STILL INFUSING.
--- NOTE | 2018-10-20 01:17 | NUR ---
ERP AT BEDSIDE FOR RE-EVALUATION.
[2018-10-20] MEDS ORDERED: ONDANSETRON 2MG/ML, 2ML ONE (01:30)
[2018-10-20] MEDS ORDERED: MORPHINE SULFATE 4 MG/ML, 1ML ONE (01:30)
[2018-10-20] MEDS ORDERED: ONDANSETRON 2MG/ML, 2ML IVPush ONE (01:30)
[2018-10-20] MEDS ORDERED: MORPHINE SULFATE 4 MG/ML, 1ML IVPush PRN (01:30)
--- NOTE | 2018-10-20 01:39 | NUR ---
PATIENT MEDICATED FOR PAIN AND NAUSEA.
--- NOTE | 2018-10-20 02:00 | NUR ---
PATIENT STATES A LITTLE BIT BETTER.
--- NOTE | 2018-10-20 02:15 | NUR ---
PATIENT DISCHARGED WITH INSTRUCTION. VERBALIZED UNDERSTANDING.
[2018-10-20 02:20] VITALS: BP 161/91
== END 2018-10-20 02:22 | disposition home or self-care (01) ==
LOC: ED 22:07
DX: E87.1 Hypo-osmolality and hyponatremia (principal); M79.10 Myalgia, unspecified site; F17.200 Nicotine dependence, unspecified, uncomplicated; I25.10 Atherosclerotic heart disease of native coronary artery without angina pectoris; I11.0 Hypertensive heart disease with heart failure; I50.9 Heart failure, unspecified; I25.2 Old myocardial infarction; E11.9 Type 2 diabetes mellitus without complications; J44.9 Chronic obstructive pulmonary disease, unspecified; Z85.53 Personal history of malignant neoplasm of renal pelvis
CPT/HCPCS: 36415; 80053; 85025; 96374; 96375; 99283; J2060; J2270; J2405; J7030

== ENCOUNTER 2019-04-08 17:22 | Emergency (ER) | payer MEDICARE ==
[~2019-04-08] VITALS: Ht 177.8 cm; Wt 94.0 kg
[~2019-04-08 17:22] MED LIST changes: -TIZA2TAB PO; +TIZA2TAB2 PO
[2019-04-08] MEDS ORDERED: DIAZEPAM 5 MG TABLET PO ONE (18:30)
[2019-04-08] MEDS ORDERED: KETOROLAC 30 MG/1 ML IM ONE (18:30)
[2019-04-08] MEDS ORDERED: KETOROLAC 30 MG/1 ML ONE (18:34)
[2019-04-08] MEDS ORDERED: DIAZEPAM 5 MG TABLET ONE (18:34)
[2019-04-08 18:46] VITALS: BP 170/96
== END 2019-04-08 19:34 | disposition home or self-care (01) ==
LOC: ED 19:28
DX: S39.012A Strain of muscle, fascia and tendon of lower back, initial encounter (principal); M54.41 Lumbago with sciatica, right side; I10 Essential (primary) hypertension; I25.2 Old myocardial infarction; Z90.5 Acquired absence of kidney; W18.40XA Slipping, tripping and stumbling without falling, unspecified, initial encounter; Y93.89 Activity, other specified; Y92.89 Other specified places as the place of occurrence of the external cause; Y99.8 Other external cause status
CPT/HCPCS: 72110; 96372; 99283; J1885; J7512

== ENCOUNTER 2019-07-23 12:37 | Emergency (ER) | payer MEDICARE ==
[~2019-07-23] VITALS: Ht 177.8 cm; Wt 95.3 kg
[~2019-07-23 12:37] MED LIST changes: +FENO50CA2 PO; +PANT40TA5 PO
--- NOTE | 2019-07-23 12:56 | NUR ---
ERP AT NOW.
[2019-07-23] MEDS ORDERED: MORPHINE SULFATE 4 MG/ML, 1ML ONE ×2 (13:11→14:15)
[2019-07-23] MEDS ORDERED: ONDANSETRON 2MG/ML, 2ML ONE (13:11)
[2019-07-23 13:23] LABS: BASOPHILS # (AUTO) 0.04 x10^3/uL (0-0.1); BASOPHILS % (AUTO) 0 % (0-1); EOSINOPHILS # (AUTO) 0.33 x10^3/uL (0-0.4); EOSINOPHILS % (AUTO) 3 % (1-7); LYMPHOCYTES # (AUTO) 2.23 x10^3/uL (1-3.4); LYMPHOCYTES % (AUTO) 20 % (22-44); MD NO; MEAN CORPUSCULAR HEMOGLOBIN 29.3 pg (27.5-34.5); MEAN CORPUSCULAR HGB CONC 33.6 g/dL (33.2-36.2); MEAN CORPUSCULAR VOLUME 87.1 fL (81-97); MONOCYTES # (AUTO) 0.85 x10^3/uL (0.2-0.8); MONOCYTES % (AUTO) 8 % (2-9); NEUTROPHILS # (AUTO) 7.72 x10^3/uL (1.8-6.8); NEUTROPHILS % (AUTO) 69 % (42-75); PLATELET COUNT 372 x10^3/uL (130-400); RED CELL DISTRIBUTION WIDTH 15.7 % (9.4-14.8)
[2019-07-23] MEDS ORDERED: SODIUM CHLORIDE FLUSH 10ML SYR IVF ONE (13:30)
[2019-07-23] MEDS ORDERED: ONDANSETRON 2MG/ML, 2ML IVPush ONE (13:30)
[2019-07-23 13:31] LABS: ALANINE AMINOTRANSFERASE 17 U/L (12-78); ANION GAP 10 mmol/L (5-15); CALCIUM 8.4 mg/dL (8.5-10.1); CHLORIDE 102 mmol/L (98-107); CREATININE 1.44 mg/dL (0.7-1.3)
[2019-07-23 13:33] LABS: ALKALINE PHOSPHATASE 113 U/L (45-117); BILIRUBIN,TOTAL 0.4 mg/dL (0.2-1.0); TOTAL PROTEIN 7.7 g/dL (6.4-8.2)
[2019-07-23] MEDS: MORPHINE SULFATE 4 MG/ML, 1ML IVPush PRN ×2 (13:36→14:20)
[2019-07-23 14:27] LABS: MICROSCOPIC AUTO
--- NOTE | 2019-07-23 14:30 | NUR ---
PT MEDICATED 2 DOSES OF MORPHINE PER ORDERS FOR CONTINUED BILAT LOWER BACK PAIN. PT STATES, "I'M HOPING I JUST PULLED A MUSCLE OR SOMETHING. I HAVE A REALLY BAD BACK. IT'S JUST SO UNCOMFORTABLE."
[2019-07-23 14:37] LABS: CULTURE INDICATED? NO
[2019-07-23 15:36] VITALS: BP 129/82
--- NOTE | 2019-07-23 15:52 | NUR ---
TASK RN: FIRST CONTACT WITH PT. Patient given discharge instructions and they have confirmed that they understand the instructions. Patient ambulatory with steady gait. Pt left with d/c paperwork, Rx, and all personal belongings.
== END 2019-07-23 15:54 | disposition home or self-care (01) ==
LOC: ED 15:40
DX: S39.012A Strain of muscle, fascia and tendon of lower back, initial encounter (principal); E11.9 Type 2 diabetes mellitus without complications; J43.9 Emphysema, unspecified; M19.90 Unspecified osteoarthritis, unspecified site; I25.10 Atherosclerotic heart disease of native coronary artery without angina pectoris; I11.0 Hypertensive heart disease with heart failure; I50.9 Heart failure, unspecified; E78.5 Hyperlipidemia, unspecified; I25.2 Old myocardial infarction; F17.210 Nicotine dependence, cigarettes, uncomplicated; Z85.53 Personal history of malignant neoplasm of renal pelvis; Z98.890 Other specified postprocedural states; X58.XXXA Exposure to other specified factors, initial encounter; Y93.89 Activity, other specified; Y92.89 Other specified places as the place of occurrence of the external cause; Y99.8 Other external cause status
CPT/HCPCS: 36415; 74176; 80053; 81001; 85025; 96374; 96375; 96376; 99284; J2270; J2405

== ENCOUNTER 2019-11-29 11:10 | Emergency (ER) | payer MEDICARE ==
[~2019-11-29] VITALS: Ht 177.8 cm; Wt 93.2 kg
[~2019-11-29 11:10] MED LIST changes: -HYDR-3059 PO; +HYDR-3590 PO; -TIZA2TAB2 PO; +TIZA2TAB4 PO
[2019-11-29] MEDS ORDERED: KETOROLAC 30 MG/1 ML IVPush ONE (12:30)
[2019-11-29] MEDS ORDERED: SODIUM CHLORIDE 0.9% 1,000ML IVBOLUS ONE (12:30)
[2019-11-29] MEDS ORDERED: DIAZEPAM 5 MG/ML, 2ML IVPush ONE (12:30)
[2019-11-29] MEDS ORDERED: KETOROLAC 30 MG/1 ML ONE (12:32)
[2019-11-29] MEDS ORDERED: DIAZEPAM 5 MG/ML, 2ML ONE ×2 (12:32→13:42)
[2019-11-29 12:39] LABS: BASOPHILS # (AUTO) 0.02 x10^3/uL (0-0.1); BASOPHILS % (AUTO) 0 % (0-1); EOSINOPHILS # (AUTO) 0.39 x10^3/uL (0-0.4); EOSINOPHILS % (AUTO) 3 % (1-7); LYMPHOCYTES # (AUTO) 2.34 x10^3/uL (1-3.4); LYMPHOCYTES % (AUTO) 18 % (22-44); MD NO; MEAN CORPUSCULAR HEMOGLOBIN 29.2 pg (27.5-34.5); MEAN CORPUSCULAR HGB CONC 32.9 g/dL (33.2-36.2); MEAN CORPUSCULAR VOLUME 88.9 fL (81-97); MEAN PLATELET VOLUME 7.9 fL (7.4-10.4); MONOCYTES # (AUTO) 0.81 x10^3/uL (0.2-0.8); MONOCYTES % (AUTO) 6 % (2-9); NEUTROPHILS # (AUTO) 9.22 x10^3/uL (1.8-6.8); NEUTROPHILS % (AUTO) 72 % (42-75); PLATELET COUNT 400 x10^3/uL (130-400); RED BLOOD COUNT 5.04 x10^6/uL (4.38-5.82); RED CELL DISTRIBUTION WIDTH 15.2 % (9.4-14.8)
[2019-11-29 12:45] LABS: ALANINE AMINOTRANSFERASE 17 U/L (12-78); ALBUMIN 4.2 g/dL (3.4-5.0); ANION GAP 7 mmol/L (5-15); CALCIUM 9.2 mg/dL (8.5-10.1); CHLORIDE 106 mmol/L (98-107); CREATININE 1.56 mg/dL (0.7-1.3)
[2019-11-29 12:48] LABS: ALKALINE PHOSPHATASE 118 U/L (45-117); BILIRUBIN,TOTAL 0.3 mg/dL (0.2-1.0); TOTAL PROTEIN 7.9 g/dL (6.4-8.2)
[2019-11-29 13:38] VITALS: BP 170/93
--- NOTE | 2019-11-29 13:39 | NUR ---
PT BACK FROM XRAY. PT STATES PAIN IS BETTER.
--- NOTE | 2019-11-29 13:48 | NUR ---
PT C/O MUSCLE SPASM IN BACK HAS COME BACK. ARCHITECTURAL INSPECTOR PER JUL.
--- NOTE | 2019-11-29 13:49 | NUR ---
ALL RESULTS ARE BACK AT THIS TIME. CHART UP FOR RECHECK.
[2019-11-29] MEDS ORDERED: DIAZEPAM 5 MG/ML, 10ML VIAL IV ONE (14:00)
--- NOTE | 2019-11-29 14:00 | NUR ---
MD AT BEDSIDE TO UPDATE PT ON POC.
--- NOTE | 2019-11-29 14:16 | NUR ---
PT STATES MUSCLE SPASMS ARE BETTER.
== END 2019-11-29 14:18 | disposition home or self-care (01) ==
LOC: ED 14:04
DX: R11.2 Nausea with vomiting, unspecified (principal); M54.41 Lumbago with sciatica, right side; R19.7 Diarrhea, unspecified; I11.0 Hypertensive heart disease with heart failure; I50.9 Heart failure, unspecified; E11.9 Type 2 diabetes mellitus without complications; E78.5 Hyperlipidemia, unspecified; I25.10 Atherosclerotic heart disease of native coronary artery without angina pectoris; J44.9 Chronic obstructive pulmonary disease, unspecified; I25.2 Old myocardial infarction; Z85.528 Personal history of other malignant neoplasm of kidney
CPT/HCPCS: 36415; 72110; 80053; 83690; 85025; 96361; 96374; 96375; 99284; J1885; J3360; J7030; J7512

== ENCOUNTER 2019-12-14 09:39 | Observation (INO) | payer MEDICARE ==
[~2019-12-14] VITALS: Ht 177.8 cm; Wt 99.7 kg
--- NOTE | 2019-12-14 09:40 | NUR ---
PATIENT BIB [facility] WITH C/O RIGHT-SIDED CHEST PAIN THAT RADIATES TO THE BACK. PATIENT STATES, "I FEEL LIKE I'M BEING SHOT WITH AN ARROW THROUGH THE CHEST." PATIENT WAS WATCHING TV THIS MORNING AND HAD SUDDEN ONSET OF SEVERE CHEST PAIN THAT RADIATES TO HIS BACK. PATIENT TOOK 2 NITRO PRIOR TO EMS ARRIVAL WITH NO RELIEF OF PAIN. EN ROUTE TO HOSPITAL EMS ADMINISTERED 324 ASA AND 200 MCG OF FENTANYL WITH NO RELIEF OF PAIN PER PATIENT. UPON ASSESSMENT PATIENT IS DIAPHORETIC AND HAD 2 EPISODES OF EMESIS, PATIENT C/O OF 910 RIGHT-SIDED CHEST PAIN WITH RADIATION TO THE BACK. EKG DONE, 4 MG MORPHINE, 100 MCG OF FENTANYL AND 1 MG ATIVAN ADMINISTERED. PATIENT TAKEN TO CT. Addendum: 12/14/19 at 1045 by [email or web address] PATIENT ARRIVED WITH 18 GAUGE IV IN RIGHT AC. PLACED BY REMSA. SECOND IV STARTED, 20 GAUGE IN LEFT FOREARM.
[2019-12-14] MEDS ORDERED: MORPHINE SULFATE 4 MG/ML, 1ML ONE ×3 (09:49→11:24)
[2019-12-14] MEDS ORDERED: LORazepam 2 MG/ML, 1ML ONE ×2 (09:51→10:05)
[2019-12-14] MEDS ORDERED: ICN FENTANYL 4MCG/ML IV IVPush STA (09:55)
[2019-12-14] MEDS ORDERED: FENTANYL PF 100 MCG/2ML ONE (09:59)
[2019-12-14] MEDS ORDERED: NITROGLYCERIN SINGLE TAB 0.4 MG SL PRN (10:00)
[2019-12-14] MEDS: PLEASE ENTER HEIGHT AND WEIGHT MC SCH ×2 (10:00→15:24)
[2019-12-14] MEDS ORDERED: LORazepam 2 MG/ML, 1ML IVPush ONE ×2 (10:00→10:30)
[2019-12-14] MEDS ORDERED: SODIUM CHLORIDE FLUSH 10ML SYR IVF ONE (10:00)
[2019-12-14] MEDS ORDERED: KETAMINE 10 MG/ML, 20ML IV ONE (10:05)
[2019-12-14 10:17] LABS: BASOPHILS # (AUTO) 0.05 x10^3/uL (0-0.1); BASOPHILS % (AUTO) 0 % (0-1); EOSINOPHILS # (AUTO) 0.41 x10^3/uL (0-0.4); EOSINOPHILS % (AUTO) 3 % (1-7); LYMPHOCYTES # (AUTO) 2.49 x10^3/uL (1-3.4); LYMPHOCYTES % (AUTO) 20 % (22-44); MD NO; MEAN CORPUSCULAR HEMOGLOBIN 28.8 pg (27.5-34.5); MEAN CORPUSCULAR HGB CONC 32.5 g/dL (33.2-36.2); MEAN CORPUSCULAR VOLUME 88.6 fL (81-97); MONOCYTES # (AUTO) 0.76 x10^3/uL (0.2-0.8); MONOCYTES % (AUTO) 6 % (2-9); NEUTROPHILS # (AUTO) 8.89 x10^3/uL (1.8-6.8); NEUTROPHILS % (AUTO) 71 % (42-75); PLATELET COUNT 421 x10^3/uL (130-400); RED CELL DISTRIBUTION WIDTH 14.6 % (9.4-14.8)
[2019-12-14] MEDS: MORPHINE SULFATE 4 MG/ML, 1ML IVPush PRN ×2 (10:24→11:25)
[2019-12-14] MEDS ORDERED: ASPIRIN 325 MG TABLET PO STA (10:25)
[2019-12-14] MEDS ORDERED: ASPIRIN 325 MG TABLET ONE (10:29)
--- NOTE | 2019-12-14 10:44 | NUR ---
CT SCAN DONE, 4 MG IV MORPHINE ADMINISTERED AND 325 ASA. PATIENT'S PAIN IS SOMEWHAT RELIEVED BY MEDICATION. RESTING IN GURNEY, NO FURTHER NEEDS AT THIS TIME.
[2019-12-14 10:56] LABS: ALANINE AMINOTRANSFERASE 13 U/L (12-78); ALBUMIN 3.9 g/dL (3.4-5.0); ANION GAP 8 mmol/L (5-15); CALCIUM 8.4 mg/dL (8.5-10.1); CHLORIDE 106 mmol/L (98-107); CREATININE 1.32 mg/dL (0.7-1.3)
[2019-12-14 11:00] LABS: ALKALINE PHOSPHATASE 106 U/L (45-117); BILIRUBIN,TOTAL 0.5 mg/dL (0.2-1.0); TOTAL PROTEIN 7.2 g/dL (6.4-8.2); TROPONIN I < 0.015 ng/mL (0.000-0.045)
[2019-12-14] MEDS ORDERED: FENTANYL PF 100 MCG/2ML IVPush ONE (11:00)
[2019-12-14] MEDS ORDERED: ASPIRIN 325 MG TABLET PO ONE (11:00)
--- NOTE | 2019-12-14 11:29 | NUR ---
Patient c/o 5/10 right-sided chest pain, 4 mg IV morphine administered. Urinal given to patient for urine sample. No further needs at this time.
--- NOTE | 2019-12-14 11:47 | NUR ---
PT back from imaging.
--- NOTE | 2019-12-14 12:20 | NUR ---
URINE SAMPLE COLLECTED. PATIENT RESTING IN BED, NO FURTHER NEEDS AT THIS TIME.
[2019-12-14] MEDS ORDERED: KETOROLAC 30 MG/1 ML IVPush STA (12:26)
[2019-12-14] MEDS ORDERED: KETOROLAC 30 MG/1 ML ONE (12:30)
--- NOTE | 2019-12-14 12:33 | NUR ---
INCREASING PAIN ON RIGTH SIDE, MEDICATED ORDERED.
[2019-12-14 12:40] LABS: AMPHETAMINE SCREEN, URINE Negative (Negative); BARBITURATE SCREEN, URINE Negative (Negative); BENZODIAZEPINE SCREEN, URINE Negative (Negative); CANNABINOID SCREEN, URINE Positive (Negative); COCAINE SCREEN, URINE Negative (Negative); METHADONE SCREEN, URINE Negative (Negative); MICROSCOPIC AUTO; OPIATE SCREEN, URINE Positive (Negative)
[2019-12-14] MEDS ORDERED: KETOROLAC 30 MG/1 ML IVPush ONE (13:00)
[2019-12-14] MEDS ORDERED: OMNIPAQUE 350 MG/ML, 100ML BOTTLE ONE (13:00)
--- NOTE | 2019-12-14 13:37 | NUR ---
PATIENT C/O OF 11/22 RIGHT-SIDED CHEST PAIN WITH RADIATION TO BACK.
[2019-12-14] MEDS ORDERED: HYDROmorphone 1 MG/ML, 1ML INJ ONE (13:47)
[2019-12-14] MEDS: HYDROmorphone 1 MG/ML, 1ML INJ IV PRN ×2 (13:49→15:44)
--- NOTE | 2019-12-14 13:52 | NUR ---
Patient medicated per eMAR.
--- NOTE | 2019-12-14 15:01 | NUR ---
[facility] MD Polanco at bedside
--- NOTE | 2019-12-14 15:01 | NUR ---
Report called to ROBLES Zambrano on Tele.
[2019-12-14 15:32] LABS: TROPONIN I < 0.015 ng/mL (0.000-0.045)
[2019-12-14 15:35] VITALS: BP 150/88
[2019-12-14] MEDS ORDERED: hydrALAzine 20 MG/ML, 1ML IVPush PRN (16:00)
[2019-12-14] MEDS ORDERED: ALUMINUM/MAG/SIMETHICONE 30 ML UDC PO PRN (16:00)
[2019-12-14] MEDS ORDERED: GABAPENTIN 300 MG CAPSULE PO PRN (16:00)
[2019-12-14] MEDS ORDERED: ONDANSETRON 2MG/ML, 2ML IVPush PRN (16:00)
[2019-12-14] MEDS ORDERED: ACETAMINOPHEN 325 MG TABLET PO PRN (16:00)
[2019-12-14] MEDS: SUCRALFATE 1 GM/10 ML UDC PO SCH ×2 (16:12→20:09)
[2019-12-14] MEDS: PANTOPRAZOLE 40 MG IV IVPush SCH ×2 (16:12→20:09)
[2019-12-14] MEDS: morphine SULFATE 10 MG/ML, 1ML IVPush PRN ×2 (16:12→20:58)
[2019-12-14 18:43] VITALS: BP 150/86
[2019-12-14] MEDS: OXYcodone IR 5MG TABLET PO PRN (20:10)
[2019-12-14 22:46] LABS: TROPONIN I < 0.015 ng/mL (0.000-0.045)
[2019-12-15 00:26] VITALS: BP 161/69
[2019-12-15] MEDS: morphine SULFATE 10 MG/ML, 1ML IVPush PRN ×2 (00:29→04:20)
[2019-12-15] MEDS: OXYcodone IR 5MG TABLET PO PRN ×2 (01:50→07:51)
[2019-12-15] MEDS ORDERED: NICOTINE 21 MG/24 HR PATCH.TD24 TD SCH (03:30)
[2019-12-15 05:55] LABS: ANION GAP 9 mmol/L (5-15); CALCIUM 8.4 mg/dL (8.5-10.1); CHLORIDE 103 mmol/L (98-107); CHOLESTEROL, TOTAL 189 mg/dL (140-239); CREATININE 1.32 mg/dL (0.7-1.3); TRIGLYCERIDES 376 mg/dL (50-200); VLDL CHOLESTEROL 75 mg/dL (0-25)
[2019-12-15 05:57] LABS: BASOPHILS # (AUTO) 0.07 x10^3/uL (0-0.1); BASOPHILS % (AUTO) 1 % (0-1); EOSINOPHILS # (AUTO) 0.42 x10^3/uL (0-0.4); EOSINOPHILS % (AUTO) 4 % (1-7); LYMPHOCYTES # (AUTO) 2.44 x10^3/uL (1-3.4); LYMPHOCYTES % (AUTO) 22 % (22-44); MD NO; MEAN CORPUSCULAR HEMOGLOBIN 29.6 pg (27.5-34.5); MEAN CORPUSCULAR HGB CONC 33.1 g/dL (33.2-36.2); MEAN CORPUSCULAR VOLUME 89.2 fL (81-97); MEAN PLATELET VOLUME 8.6 fL (7.4-10.4); MONOCYTES # (AUTO) 0.69 x10^3/uL (0.2-0.8); MONOCYTES % (AUTO) 6 % (2-9); NEUTROPHILS # (AUTO) 7.76 x10^3/uL (1.8-6.8); NEUTROPHILS % (AUTO) 68 % (42-75); PLATELET COUNT 306 x10^3/uL (130-400); RED BLOOD COUNT 4.39 x10^6/uL (4.38-5.82); RED CELL DISTRIBUTION WIDTH 14.8 % (9.4-14.8)
[2019-12-15] MEDS ORDERED: LEVOTHYROXINE 100 MCG TABLET PO SCH (06:00)
[2019-12-15 06:01] LABS: CHOL/HDL RATIO 5.3; HDL CHOL % 19 % (26-37); HDL CHOLESTEROL (DIRECT) 36 mg/dL (40-60); LDL CHOLESTEROL,CALCULATED 78 mg/dL (54-169); LDL/HDL RATIO 2.2 (0.5-3.0)
[2019-12-15] MEDS ORDERED: LIDODERM 5% PATCH TD SCH (07:30)
[2019-12-15] MEDS: PANTOPRAZOLE 40 MG IV IVPush SCH ×2 (07:51→07:53)
[2019-12-15] MEDS: SUCRALFATE 1 GM/10 ML UDC PO SCH ×2 (07:51→07:53)
[2019-12-15] MEDS ORDERED: LISINOPRIL 40 MG TABLET PO SCH (09:00)
[2019-12-15] MEDS ORDERED: SENNA/DOCUSATE TABLET PO SCH (09:00)
[2019-12-15] MEDS ORDERED: FENOFIBRATE 54 MG TABLET PO SCH (09:00)
[2019-12-15] MEDS ORDERED: CARVEDILOL 12.5 MG TABLET PO SCH (09:00)
[2019-12-15] MEDS ORDERED: CLOPIDOGREL 75 MG TABLET PO SCH (09:00)
[2019-12-15 11:52] VITALS: BP 150/68
[2019-12-15] MEDS ORDERED: ATORVASTATIN 40 MG TABLET PO SCH (21:00)
== END 2019-12-15 08:00 | disposition left against medical advice (07) ==
LOC: ED 10:48 → INTOOBSV 11:23 → EDIP 11:23 → 5SO 15:33
PROVIDERS: ADMIT Hospitalist; ATTEND Hospitalist
DX: I25.10 Atherosclerotic heart disease of native coronary artery without angina pectoris (principal); I13.0 Hypertensive heart and chronic kidney disease with heart failure and stage 1 through stage 4 chronic kidney disease, or unspecified chronic kidney disease; E11.22 Type 2 diabetes mellitus with diabetic chronic kidney disease; I50.9 Heart failure, unspecified; N18.9 Chronic kidney disease, unspecified; N17.0 Acute kidney failure with tubular necrosis; I25.2 Old myocardial infarction; D72.829 Elevated white blood cell count, unspecified; E78.5 Hyperlipidemia, unspecified; F32.9 Major depressive disorder, single episode, unspecified; E03.9 Hypothyroidism, unspecified; F17.200 Nicotine dependence, unspecified, uncomplicated; F12.90 Cannabis use, unspecified, uncomplicated; M19.90 Unspecified osteoarthritis, unspecified site; R61 Generalized hyperhidrosis; J43.9 Emphysema, unspecified; Z90.5 Acquired absence of kidney; Z95.5 Presence of coronary angioplasty implant and graft; Z85.528 Personal history of other malignant neoplasm of kidney; Z86.011 Personal history of benign neoplasm of the brain; Z79.899 Other long term (current) drug therapy; Z91.14 Patient's other noncompliance with medication regimen
CPT/HCPCS: 36415; 71045; 71275; 74176; 80048; 80053; 80061; 80307; 81001; 82550; 83036; 83605; 83690; 83735; 84100; 84484; 85025; 85379; 86850; 86900; 93005; 96374; 96375; 96376; 99291; C9113; G0378; J1170; J1885; J2060; J2270; Q9967

== ENCOUNTER 2019-12-24 17:25 | Emergency (ER) | payer MEDICARE ==
[~2019-12-24] VITALS: Ht 177.8 cm; Wt 94.2 kg
--- NOTE | 2019-12-24 18:35 | NUR ---
ACCOUNTS PAYABLE SPECIALIST: PT TO ROOM VIA WHEELCHAIR AT THIS TIME. KEAGAN
--- NOTE | 2019-12-24 18:50 | NUR ---
Pt here for discoloration of knees and swelling in feet. Also reports chest pain. Pt report he was very anxious. Pt reports his made him come in. Pt denies any trauma. Pt does appear to be anxious. Pt has good pulses to both feet. Pt has very faint mottling of his knees and legs. Pt connected to monitor and call light in reach. Awaiting further orders.
[2019-12-24] MEDS ORDERED: ONDANSETRON 2MG/ML, 2ML IVPush ONE (19:00)
[2019-12-24] MEDS ORDERED: SODIUM CHLORIDE FLUSH 10ML SYR IVF ONE (19:00)
--- NOTE | 2019-12-24 19:02 | NUR ---
LAB AND XRAY AT BEDSIDE.
--- NOTE | 2019-12-24 19:05 | NUR ---
ULTRASOUND AT BEDSIDE
[2019-12-24 19:11] LABS: BASOPHILS # (AUTO) 0.07 x10^3/uL (0-0.1); BASOPHILS % (AUTO) 1 % (0-1); EOSINOPHILS % (AUTO) 4 % (1-7); LYMPHOCYTES # (AUTO) 2.81 x10^3/uL (1-3.4); LYMPHOCYTES % (AUTO) 27 % (22-44); MD NO; MEAN CORPUSCULAR HEMOGLOBIN 29.7 pg (27.5-34.5); MEAN CORPUSCULAR HGB CONC 33.5 g/dL (33.2-36.2); MEAN CORPUSCULAR VOLUME 88.7 fL (81-97); MEAN PLATELET VOLUME 7.9 fL (7.4-10.4); MONOCYTES # (AUTO) 0.66 x10^3/uL (0.2-0.8); MONOCYTES % (AUTO) 6 % (2-9); NEUTROPHILS # (AUTO) 6.68 x10^3/uL (1.8-6.8); NEUTROPHILS % (AUTO) 63 % (42-75); PLATELET COUNT 392 x10^3/uL (130-400); RED CELL DISTRIBUTION WIDTH 14.3 % (9.4-14.8)
[2019-12-24 19:22] LABS: ALANINE AMINOTRANSFERASE 21 U/L (12-78); ALBUMIN 4.3 g/dL (3.4-5.0); ANION GAP 8 mmol/L (5-15); CALCIUM 8.5 mg/dL (8.5-10.1); CHLORIDE 104 mmol/L (98-107)
[2019-12-24] MEDS ORDERED: ONDANSETRON 2MG/ML, 2ML ONE (19:22)
[2019-12-24] MEDS ORDERED: MORPHINE SULFATE 4 MG/ML, 1ML ONE ×2 (19:22→20:48)
[2019-12-24 19:27] LABS: ALKALINE PHOSPHATASE 104 U/L (45-117); BILIRUBIN,TOTAL 0.4 mg/dL (0.2-1.0); CREATININE 1.16 mg/dL (0.7-1.3); TROPONIN I < 0.015 ng/mL (0.000-0.045)
[2019-12-24] MEDS: MORPHINE SULFATE 4 MG/ML, 1ML IVPush PRN ×2 (20:07→20:51)
[2019-12-24 20:17] VITALS: BP 146/82
--- NOTE | 2019-12-24 20:28 | NUR ---
Pt medicated per emar by NOLAN ARBOLEDA
--- NOTE | 2019-12-24 20:45 | NUR ---
Pt medicated for pain control
--- NOTE | 2019-12-24 21:15 | NUR ---
Patient/Caregiver given discharge instructions and they have confirmed that they understand the instructions. Patient ambulatory with steady gait.
[2019-12-24] MEDS ORDERED: HYDROcodone/APAP 5/325 TABLET ONE (21:35)
== END 2019-12-24 21:38 | disposition home or self-care (01) ==
LOC: ED 19:40
DX: R07.2 Precordial pain (principal); R60.9 Edema, unspecified; I11.0 Hypertensive heart disease with heart failure; I50.9 Heart failure, unspecified; I25.10 Atherosclerotic heart disease of native coronary artery without angina pectoris; E11.9 Type 2 diabetes mellitus without complications; E78.5 Hyperlipidemia, unspecified; J44.9 Chronic obstructive pulmonary disease, unspecified; I25.2 Old myocardial infarction; Z85.528 Personal history of other malignant neoplasm of kidney
CPT/HCPCS: 36415; 71045; 80053; 83880; 84484; 85025; 93005; 93971; 96374; 96375; 96376; 99285; J2270; J2405

== ENCOUNTER 2020-01-06 09:48 | Emergency (ER) | payer MEDICARE ==
[~2020-01-06] VITALS: Ht 177.8 cm; Wt 93.3 kg
[2020-01-06 10:00] VITALS: BP 126/88
--- NOTE | 2020-01-06 10:20 | NUR ---
PT PRESENTS TO ED WITH C/O LEFT WRIST PAIN AFTER GLF, TRIPPED OVER HIS DOG YESTERDAY PM AND CAUGHT HIMSELF ON HIS WRIST. CMS INTACT TO LEFT WRIST, TRACE EDEMA, NO DEFORMITY NOTED. PT DENIES HEAD INJURY/TRAUMA. PT DENIES NECK PAIN. PT HAD A TEMPERATURE OF 100.1 IN TRIAGE, PT DENIES ANY VIRAL/INFECTIOUS SYMPTOMS. PT IS A&O, RESPS EVEN AND UNLABORED, FRANCESCO NIELSEN AT BEDSIDE FOR INITIAL ASSESSMENT.
[2020-01-06] MEDS ORDERED: OXYcodone/APAP 5/325MG TABLET PO ONE (10:30)
[2020-01-06] MEDS ORDERED: HYDROcodone/APAP 5/325 TABLET ONE (10:51)
[2020-01-06] MEDS ORDERED: OXYcodone/APAP 5/325MG TABLET ONE (10:54)
--- NOTE | 2020-01-06 10:55 | NUR ---
pt medicated per emar, tolerated well. awaiting xray read and dispo.
--- NOTE | 2020-01-06 12:00 | NUR ---
pt reports pain improved s/p norco. awaiting splint by tech prior to dc.
--- NOTE | 2020-01-06 12:45 | NUR ---
LISSET rn: Patient/Caregiver given discharge instructions and they have confirmed that they understand the instructions. Patient ambulatory with steady gait. Thumb spialtaf, pt refused to wait for it to set and md to see and left.
== END 2020-01-06 12:47 | disposition home or self-care (01) ==
LOC: ED 10:33
DX: G89.11 Acute pain due to trauma (principal); M25.532 Pain in left wrist; F17.200 Nicotine dependence, unspecified, uncomplicated; E11.9 Type 2 diabetes mellitus without complications; I25.10 Atherosclerotic heart disease of native coronary artery without angina pectoris; I11.0 Hypertensive heart disease with heart failure; I50.9 Heart failure, unspecified; I25.2 Old myocardial infarction; E78.5 Hyperlipidemia, unspecified; J44.9 Chronic obstructive pulmonary disease, unspecified; W01.0XXA Fall on same level from slipping, tripping and stumbling without subsequent striking against object, initial encounter; Y93.89 Activity, other specified; Y92.009 Unspecified place in unspecified non-institutional (private) residence as the place of occurrence of the external cause; Y99.8 Other external cause status
CPT/HCPCS: 29125; 99283

== ENCOUNTER 2020-01-12 16:45 | Emergency (ER) | payer MEDICARE ==
[~2020-01-12] VITALS: Ht 177.8 cm; Wt 94.1 kg
[2020-01-12 16:46] VITALS: BP 172/92
--- NOTE | 2020-01-12 17:27 | NUR ---
PAIN IN WRIST, FOLLOW UP. REPORTS THAT HE STILL HAS PAIN. PT'S DC PAPERS TOLD HIM TO COME BACK TO THE ED IF HE IS HAVEING INCREASED PAIN.
[2020-01-12] MEDS ORDERED: HYDROcodone/APAP 5/325 TABLET ONE ×2 (17:47→19:14)
[2020-01-12] MEDS ORDERED: HYDROcodone/APAP 5/325 TABLET PO ONE ×2 (18:00→19:30)
--- NOTE | 2020-01-12 18:49 | NUR ---
REPORT FROM SUKHWINDER RN ASSUMING CARE OF PT AT THIS TIME
--- NOTE | 2020-01-12 19:30 | NUR ---
Patient/Caregiver given discharge instructions and they have confirmed that they understand the instructions. Patient ambulatory with steady gait.
== END 2020-01-12 19:48 | disposition home or self-care (01) ==
LOC: ED 18:10
DX: S62.115A Nondisplaced fracture of triquetrum [cuneiform] bone, left wrist, initial encounter for closed fracture (principal); I25.2 Old myocardial infarction; E78.5 Hyperlipidemia, unspecified; I11.0 Hypertensive heart disease with heart failure; I50.9 Heart failure, unspecified; E11.9 Type 2 diabetes mellitus without complications; J44.9 Chronic obstructive pulmonary disease, unspecified; M19.90 Unspecified osteoarthritis, unspecified site; I25.10 Atherosclerotic heart disease of native coronary artery without angina pectoris; F17.200 Nicotine dependence, unspecified, uncomplicated; W18.30XA Fall on same level, unspecified, initial encounter; Y93.89 Activity, other specified; Y92.89 Other specified places as the place of occurrence of the external cause; Y99.8 Other external cause status
CPT/HCPCS: 29125; 99284

== ENCOUNTER 2020-05-03 15:38 | Emergency (ER) | payer MEDICARE ==
[~2020-05-03] VITALS: Ht 177.8 cm; Wt 72.7 kg
[~2020-05-03 15:38] MED LIST changes: -CLIN300C8 PO; +CLIN300C9 PO; -PANT40TA5 PO; +PANT40TA6 PO
--- NOTE | 2020-05-03 15:53 | NUR ---
CUPROUS CHLORIDE HELPER NOTE: SYMPTOMOLOGY REVEIWED WITH ERP FAYE, PER ERP CODE NEURO NOT INDICATED. EKG TAKEN IN TRIAGE.
[2020-05-03 16:22] LABS: BASOPHILS % (AUTO) 1 % (0-1); EOSINOPHILS % (AUTO) 4 % (1-7); LYMPHOCYTES % (AUTO) 20 % (22-44); MEAN CORPUSCULAR HEMOGLOBIN 30.3 pg (27.5-34.5); MEAN PLATELET VOLUME 7.4 fL (7.4-10.4); MONOCYTES % (AUTO) 8 % (2-9); NEUTROPHILS % (AUTO) 68 % (42-75); PLATELET COUNT 414 x10^3/uL (130-400); RED BLOOD COUNT 4.79 x10^6/uL (4.38-5.82)
[2020-05-03 16:34] LABS: ALANINE AMINOTRANSFERASE 19 U/L (12-78); ALBUMIN 4.3 g/dL (3.4-5.0); ANION GAP 8 mmol/L (5-15); CALCIUM 8.9 mg/dL (8.5-10.1); CHLORIDE 106 mmol/L (98-107)
[2020-05-03 16:38] LABS: ALKALINE PHOSPHATASE 128 U/L (45-117); BILIRUBIN,TOTAL 0.4 mg/dL (0.2-1.0); TOTAL PROTEIN 8.1 g/dL (6.4-8.2); TROPONIN I < 0.015 ng/mL (0.000-0.045)
[2020-05-03 16:54] LABS: MD SCAN
[2020-05-03] MEDS ORDERED: MORPHINE SULFATE 4 MG/ML, 1ML ONE ×2 (16:55→17:40)
[2020-05-03] MEDS ORDERED: ONDANSETRON 2MG/ML, 2ML ONE (16:55)
[2020-05-03] MEDS: MORPHINE SULFATE 4 MG/ML, 1ML IVPush PRN ×2 (16:56→17:42)
[2020-05-03] MEDS ORDERED: ONDANSETRON 2MG/ML, 2ML IVPush ONE (17:00)
[2020-05-03] MEDS ORDERED: PLEASE ENTER HEIGHT AND WEIGHT MC SCH ×2 (17:00→17:30)
[2020-05-03] MEDS ORDERED: KETAMINE 10 MG/ML, 20ML IV ONE (17:22)
[2020-05-03] MEDS ORDERED: OMNIPAQUE 350 MG/ML, 100ML BOTTLE ONE (18:24)
[2020-05-03] MEDS ORDERED: HYDROmorphone 1 MG/ML, 1ML INJ ONE ×2 (19:06→20:17)
[2020-05-03] MEDS: HYDROmorphone 2 MG/ML, 1ML IVPush PRN ×2 (19:24→20:19)
[2020-05-03] MEDS ORDERED: POLYETHYLENE GLYCOL 17 GM PACKET PO PRN (20:00)
[2020-05-03] MEDS ORDERED: BACLOFEN 10 MG TABLET PO PRN (20:00)
[2020-05-03] MEDS ORDERED: NITROGLYCERIN SINGLE TAB 0.4 MG SL PRN (20:00)
[2020-05-03] MEDS ORDERED: ACETAMINOPHEN 325 MG TABLET PO PRN (20:00)
[2020-05-03] MEDS ORDERED: BISACODYL 10 MG SUPP PR PRN (20:00)
[2020-05-03] MEDS: HEPARIN 5,000 UNITS/ML, 1ML SQ SCH (20:00)
[2020-05-03] MEDS ORDERED: ONDANSETRON ODT 4 MG PO PRN (20:00)
[2020-05-03] MEDS ORDERED: morphine SULFATE 10 MG/ML, 1ML IVPush PRN (20:00)
[2020-05-03] MEDS ORDERED: HEPARIN 5,000 UNITS/ML, 1ML ONE (20:17)
[2020-05-03] MEDS ORDERED: TEMPLATE NON-FORMULARY MED. (Gabapentin** 600 MG) PO SCH (21:00)
[2020-05-03] MEDS ORDERED: ATORVASTATIN 40 MG TABLET PO SCH (21:00)
[2020-05-03] MEDS ORDERED: SODIUM CHLORIDE FLUSH 10ML SYR IVF SCH (21:00)
--- NOTE | 2020-05-03 21:15 | NUR ---
report from ROBLES pulido
--- NOTE | 2020-05-03 21:58 | NUR ---
pt ambulatory to the bathroom with a steady gait
[2020-05-03] MEDS ORDERED: ATORVASTATIN 40 MG TABLET ONE (22:05)
[2020-05-03] MEDS ORDERED: CARVEDILOL 12.5 MG TABLET ONE (22:05)
[2020-05-03] MEDS ORDERED: GABAPENTIN 300 MG CAPSULE ONE (22:05)
[2020-05-03 22:31] LABS: TROPONIN I < 0.015 ng/mL (0.000-0.045)
[2020-05-03] MEDS: CARVEDILOL 12.5 MG TABLET PO SCH (22:39)
[2020-05-03] MEDS ORDERED: GABAPENTIN 300 MG CAPSULE PO SCH (23:40)
--- NOTE | 2020-05-03 23:45 | NUR ---
pt resting on hospital bed. eyes closed, respirations even and unlabored.
[2020-05-04] MEDS ORDERED: MORPHINE SULFATE 4 MG/ML, 1ML ONE (02:49)
--- NOTE | 2020-05-04 02:59 | NUR ---
pt woke up with complaints of pain in his back and states he is hungry. pt provided meal from coffee cart and medicated for pain with morphine, per emar.
--- NOTE | 2020-05-04 03:15 | NUR ---
pt ambulatory to the bathroom with a steady gait
[2020-05-04] MEDS: HEPARIN 5,000 UNITS/ML, 1ML SQ SCH (04:00)
[2020-05-04 04:20] LABS: TROPONIN I < 0.015 ng/mL (0.000-0.045)
--- NOTE | 2020-05-04 07:03 | NUR ---
SBAR RPT REC'D AND ASSUMED PT CARE. PT ON HOSPITAL BED, SLEEPING, RESP EVEN NON-LABORED.
--- NOTE | 2020-05-04 07:51 | NUR ---
[facility] PROVIDER AT BEDSIDE. TEST RESULTS REVIEWED AND PLAN FOR D/C HOME TODAY DISCUSSED, QUESTIONS ANSWERED. CALL LIGHT W/I REACH, NAD NOTED. VSS.
[2020-05-04] MEDS ORDERED: OXYC5TAB2 PO (08:11)
[2020-05-04] MEDS ORDERED: BACL-19 PO (08:11)
[2020-05-04] MEDS ORDERED: CLOPIDOGREL 75 MG TABLET ONE (08:30)
[2020-05-04] MEDS ORDERED: CARVEDILOL 12.5 MG TABLET ONE (08:31)
[2020-05-04] MEDS ORDERED: GABAPENTIN 300 MG CAPSULE ONE (08:31)
[2020-05-04] MEDS ORDERED: SENNA/DOCUSATE TABLET ONE (08:31)
[2020-05-04] MEDS ORDERED: PANTOPRAZOLE 40MG TABLET ONE (08:32)
[2020-05-04] MEDS: CARVEDILOL 12.5 MG TABLET PO SCH (08:36)
--- NOTE | 2020-05-04 08:41 | NUR ---
BREAKFAST TRAY PROVIDED, PT MED NOTED WITH HIS AM MEDICATIONS. CALL LIGHT W/I REACH
[2020-05-04] MEDS ORDERED: LEVOTHYROXINE 100 MCG TABLET PO SCH (09:00)
[2020-05-04] MEDS ORDERED: LISINOPRIL 40 MG TABLET PO SCH (09:00)
[2020-05-04] MEDS ORDERED: CLOPIDOGREL 75 MG TABLET PO SCH (09:00)
[2020-05-04] MEDS ORDERED: SENNA/DOCUSATE TABLET PO SCH (09:00)
[2020-05-04] MEDS ORDERED: HYDROCORTISONE 10 MG TABLET PO SCH (09:00)
[2020-05-04] MEDS ORDERED: FENOFIBRATE 54 MG TABLET PO SCH (09:00)
[2020-05-04] MEDS ORDERED: PANTOPRAZOLE 40MG TABLET PO SCH (09:00)
[2020-05-04 09:37] VITALS: BP 118/67
--- NOTE | 2020-05-04 09:39 | NUR ---
Patient/Caregiver given discharge instructions and they have confirmed that they understand the instructions. Patient ambulatory with steady gait.
== END 2020-05-03 16:55 ==
LOC: ED 16:55 → UNDOADMOB 19:04 → INTOOBSV 19:04 → EDIP 19:04
DX: R07.89 Other chest pain (principal); E11.9 Type 2 diabetes mellitus without complications; I11.0 Hypertensive heart disease with heart failure; I50.9 Heart failure, unspecified; I25.2 Old myocardial infarction; I25.10 Atherosclerotic heart disease of native coronary artery without angina pectoris; E78.5 Hyperlipidemia, unspecified; J44.9 Chronic obstructive pulmonary disease, unspecified; F17.200 Nicotine dependence, unspecified, uncomplicated
CPT/HCPCS: 36415; 71045; 71275; 74175; 76700; 80053; 83690; 83735; 84484; 85025; 93005; 96372; 96374; 96375; 96376; 99285; J1170; J1644; J2270; J2405; Q9967

== ENCOUNTER 2020-05-26 11:47 | Emergency (ER) | payer MEDICARE ==
[~2020-05-26] VITALS: Ht 180.3 cm; Wt 95.9 kg
[~2020-05-26 11:47] MED LIST changes: +BACL-19 PO; -ESCI20TA PO; +ESCI20TA5 PO; +OXYC5TAB2 PO; +TIZA-106 PO; -TIZA2TAB4 PO
--- NOTE | 2020-05-26 12:19 | NUR ---
SURGICAL CODER: PT TO ROOM FROM LOBBY
--- NOTE | 2020-05-26 12:43 | NUR ---
This pt is breathing heavy from pain, but is sitting in his position of comfort. Denies urinary symptoms. States he has chronic back and stomach muscular related pain. Pt states he's not experienced pain like this before. Pain is at lower flank, radiates to his medial back but not forward. No hx of kidney stone, but only has 1/2 his L kidney. Denies trauma to his back. Connected to BP and O2 monitors. at bedside, call light in reach.
[2020-05-26] MEDS ORDERED: ONDANSETRON 2MG/ML, 2ML ONE (13:12)
[2020-05-26] MEDS ORDERED: MORPHINE SULFATE 4 MG/ML, 1ML ONE ×2 (13:12→15:05)
[2020-05-26] MEDS ORDERED: KETOROLAC 30 MG/1 ML IVPush ONE ×2 (13:30→15:00)
[2020-05-26] MEDS ORDERED: ONDANSETRON 2MG/ML, 2ML IVPush ONE (13:30)
[2020-05-26] MEDS ORDERED: SODIUM CHLORIDE 0.9% 1,000ML IV ONE (13:30)
[2020-05-26] MEDS ORDERED: SODIUM CHLORIDE FLUSH 10ML SYR IVF ONE (13:30)
[2020-05-26] MEDS ORDERED: MORPHINE SULFATE 4 MG/ML, 1ML IVPush PRN (13:30)
[2020-05-26] MEDS ORDERED: DIAZEPAM 5 MG/ML, 2ML IVPush ONE (13:30)
[2020-05-26 13:49] LABS: BASOPHILS % (AUTO) 1 % (0-1); EOSINOPHILS % (AUTO) 4 % (1-7); LYMPHOCYTES % (AUTO) 18 % (22-44); MEAN CORPUSCULAR HEMOGLOBIN 30.1 pg (27.5-34.5); MEAN CORPUSCULAR HGB CONC 33.7 g/dL (33.2-36.2); MEAN PLATELET VOLUME 8.8 fL (7.4-10.4); MONOCYTES % (AUTO) 7 % (2-9); NEUTROPHILS % (AUTO) 71 % (42-75); PLATELET COUNT 367 x10^3/uL (130-400); RED BLOOD COUNT 4.76 x10^6/uL (4.38-5.82)
[2020-05-26 14:00] LABS: ALBUMIN 4.5 g/dL (3.4-5.0); ANION GAP 4 mmol/L (5-15); CALCIUM 9.2 mg/dL (8.5-10.1); CHLORIDE 107 mmol/L (98-107)
[2020-05-26] MEDS ORDERED: DIAZEPAM 5 MG/ML, 2ML ONE (14:00)
[2020-05-26] MEDS ORDERED: KETOROLAC 30 MG/1 ML ONE ×2 (14:00→15:04)
[2020-05-26 14:01] LABS: MD NO
[2020-05-26 14:04] LABS: ALANINE AMINOTRANSFERASE 20 U/L (12-78); ALKALINE PHOSPHATASE 122 U/L (45-117); BILIRUBIN,TOTAL 0.4 mg/dL (0.2-1.0); CREATININE 1.36 mg/dL (0.7-1.3); TOTAL PROTEIN 8.3 g/dL (6.4-8.2)
[2020-05-26 14:05] LABS: MICROSCOPIC AUTO
--- NOTE | 2020-05-26 14:09 | NUR ---
Pt medicated per JUL, connected to BP and O2 monitors. Call light in reach, bedrails up x2. Pt aware of 2nd morphine dose.
--- NOTE | 2020-05-26 14:34 | NUR ---
Pt to imaging.
[2020-05-26] MEDS ORDERED: HYDROmorphone 2 MG/ML, 1ML IVPush PRN (15:00)
[2020-05-26] MEDS ORDERED: HYDROmorphone 1 MG/ML, 1ML INJ ONE (15:04)
--- NOTE | 2020-05-26 15:11 | NUR ---
Pt educated about the pain medication options. This RN asked pt "have you ever had Dilaudid." Pt stated "why don't you do the Dilaudid instead of the Toradol." Pt educated that he could have either Dilaudid or Morphine, pt medicated to JUL. Chart placed for recheck.
[2020-05-26 16:03] VITALS: BP 116/74
== END 2020-05-26 16:09 | disposition home or self-care (01) ==
LOC: ED 14:47
DX: S39.012A Strain of muscle, fascia and tendon of lower back, initial encounter (principal); I11.0 Hypertensive heart disease with heart failure; I50.9 Heart failure, unspecified; E11.9 Type 2 diabetes mellitus without complications; I25.10 Atherosclerotic heart disease of native coronary artery without angina pectoris; E78.5 Hyperlipidemia, unspecified; I25.2 Old myocardial infarction; Z85.528 Personal history of other malignant neoplasm of kidney; X58.XXXA Exposure to other specified factors, initial encounter; Y93.89 Activity, other specified; Y92.89 Other specified places as the place of occurrence of the external cause; Y99.8 Other external cause status
CPT/HCPCS: 36415; 74176; 80053; 81001; 83690; 85025; 96361; 96374; 96375; 99285; J1170; J1885; J2270; J2405; J3360; J7030

== ENCOUNTER 2020-06-03 08:19 | Emergency (ER) | payer MEDICARE ==
[~2020-06-03] VITALS: Ht 177.8 cm; Wt 93.9 kg
--- NOTE | 2020-06-03 08:46 | NUR ---
PT NOW WITH C/O SUDDEN ONSET OF CHEST PAIN, LEFT CHEST RADIATES TO LEFT SHOULDER AND ARM. PAIN 8 EKG COMPLETED, REPEAT VSS HR 92, BP 139/98 99% ON RA
[2020-06-03] MEDS ORDERED: DIAZEPAM 5 MG TABLET ONE (09:28)
[2020-06-03] MEDS ORDERED: SODIUM CHLORIDE 0.9% 1,000 ML IV ONE (09:30)
[2020-06-03] MEDS ORDERED: DIAZEPAM 5 MG/ML, 10ML VIAL IV ONE ×2 (09:30→12:30)
[2020-06-03 09:38] LABS: BASOPHILS % (AUTO) 1 % (0-1); EOSINOPHILS % (AUTO) 3 % (1-7); LYMPHOCYTES % (AUTO) 13 % (22-44); MEAN CORPUSCULAR HEMOGLOBIN 29.8 pg (27.5-34.5); MEAN CORPUSCULAR HGB CONC 33.4 g/dL (33.2-36.2); MONOCYTES % (AUTO) 7 % (2-9); NEUTROPHILS % (AUTO) 77 % (42-75); PLATELET COUNT 373 x10^3/uL (130-400); RED BLOOD COUNT 5.05 x10^6/uL (4.38-5.82); RED CELL DISTRIBUTION WIDTH 13.6 % (9.4-14.8)
[2020-06-03 09:42] LABS: MD NO
[2020-06-03 09:49] LABS: ALANINE AMINOTRANSFERASE 23 U/L (12-78); ALBUMIN 4.8 g/dL (3.4-5.0); ANION GAP 10 mmol/L (5-15); CALCIUM 9.5 mg/dL (8.5-10.1); CHLORIDE 105 mmol/L (98-107); CREATININE 1.49 mg/dL (0.7-1.3)
--- NOTE | 2020-06-03 09:50 | NUR ---
MULTIPLE ATTEMPTS TO PLACE PIV WITH NO SUCCESS. PROVIDER UPDATED.
[2020-06-03 09:52] LABS: ALKALINE PHOSPHATASE 125 U/L (45-117); BILIRUBIN,TOTAL 0.6 mg/dL (0.2-1.0); TOTAL PROTEIN 8.4 g/dL (6.4-8.2)
[2020-06-03 10:00] LABS: MICROSCOPIC AUTO
[2020-06-03] MEDS ORDERED: DIAZEPAM 5 MG TABLET PO ONE (10:00)
[2020-06-03] MEDS ORDERED: HYDROmorphone 1 MG/ML, 1ML INJ ONE (10:53)
[2020-06-03] MEDS ORDERED: HYDROmorphone 2 MG/ML, 1ML IVPush ONE (11:00)
[2020-06-03] MEDS ORDERED: SODIUM CHLORIDE 0.9%, 500ML IVBOLUS ONE (11:00)
[2020-06-03] MEDS ORDERED: DIAZEPAM 5 MG/ML, 2ML ONE (11:58)
[2020-06-03 12:17] VITALS: BP 141/82
--- NOTE | 2020-06-03 12:18 | NUR ---
TASK RN: Patient/Caregiver given discharge instructions and they have confirmed that they understand the instructions. Patient ambulatory with steady gait.
== END 2020-06-03 12:19 | disposition home or self-care (01) ==
LOC: ED 09:53
DX: E86.0 Dehydration (principal); N28.9 Disorder of kidney and ureter, unspecified; R10.84 Generalized abdominal pain; I11.0 Hypertensive heart disease with heart failure; I50.9 Heart failure, unspecified; I25.2 Old myocardial infarction; E11.9 Type 2 diabetes mellitus without complications; E78.5 Hyperlipidemia, unspecified; E87.1 Hypo-osmolality and hyponatremia; M19.90 Unspecified osteoarthritis, unspecified site; J43.9 Emphysema, unspecified; F17.210 Nicotine dependence, cigarettes, uncomplicated
CPT/HCPCS: 36415; 74021; 80053; 81001; 82550; 83735; 85025; 93005; 96361; 96374; 96375; 99285; J1170; J3360; J7030; J7040